=== PATIENT | female | born 1945 | race Caucasian/White ===

== ENCOUNTER 2025-01-11 02:01 | Inpatient (IN) | payer OTHER ==
[2025-01-11] VITALS (41 sets, daily range): BP systolic 91–149; BP diastolic 49–90; PULSE 70–103; RESP 18–62; TEMP 97.7–99.1; O2SAT 28–98
[~2025-01-11] VITALS: Ht 160 cm; Wt 49.5 kg
[~2025-01-11 02:01] MED LIST: AMLO2.5T4 PO; BENZ150C8 PO; BUDE10.7 IH; CHOL500050 PO; HYDR500C2 PO; LEVO75CA5 PO; LISI10TA24 PO; VENL50TA29 PO
[2025-01-11 02:13] LABS: ABG BASE EXCESS -5.1 mmol/L (-2.0-3.0); ABG HCO3 22.5 mmol/L (21.0-28.0); ABG OXYGEN SATURATION 95.8 % (94.0-98.0); ABG PCO2 53 mmHg (32-45); ABG PH 7.247 (7.350-7.450); CARBON MONOXIDE 4.4 % (0.5-1.5); PO2, ARTERIAL BG 92.8 mmHg (83.0-108.0); VENT MODE, BG NC (ROOM AIR)
--- NOTE | 2025-01-11 02:28 | NUR ---
PATIENT PLACED ON DARRELL HUGGER.
--- NOTE | 2025-01-11 02:29 | ERN ---
ED Note History of Present Illness Stated Complaint: RESPIRATORY ARREST Chief Complaint: Resp Arrest Time Seen by MD: 02:03 Dictation: Patient is a 80-year-old female with a past medical history of COPD, hypertension and recent pneumonia who was brought by EMS due to shortness breath. As per EMS reports patient was on agonal breathing when they arrived, patient received CPR, was bag and per EMS reports patient has improved and started breathing on her own. She was placed on non-rebreather mask and brought to the emergency department. On arrival patient was found to have a acidosis respiratory due to CO2 retention. PH was 7.2, CO2 was 53, patient was lethargic but able to respond simple question. Decision to place the patient on BiPAP during admission was discussed with the RT. Patient is saturating above 90% on 2 L O2 supplementation. We will defer intubation. Allergies: Coded Allergies: No Known Drug Allergies (Verified Allergy, Unknown, 03/13/21) Home Meds Reported Medications Budesonide/Glycopyr/Formoterol (Breztri Aerosphere Inhaler) 160 Mcg-9 Mcg-4.8 Mcg/Actuation Hfa.aer.ad, 2 PUFF IH BID for 30 Days, #10.7 GM 0 Refills 11/24/24 Hydroxyurea (Hydroxyurea) 500 Mg Capsule, 1 CAP PO DAILY for 30 Days, #30 CAP 0 Refills 11/24/24 Benzonatate (Benzonatate) 150 Mg Capsule, 1 CAP PO TID for cough for 7 Days, #21 CAP 0 Refills 11/24/24 Cholecalciferol (Vitamin D3) (Vitamin D3) 1,250 Mcg (88602 Unit) Capsule, 1 CAP PO QWEEK for 28 Days, #4 CAP 0 Refills 11/24/24 Venlafaxine HCl (Venlafaxine HCl) 50 Mg Tablet, 1 TAB PO BID for 30 Days, #60 TAB 0 Refills 11/24/24 Levothyroxine Sodium (Levothyroxine) 75 Mcg Capsule, 75 MCG PO ACBKFST, CAP 03/13/21 Lisinopril (Lisinopril) 10 Mg Tablet, 10 MG PO AM, TAB 03/13/21 Amlodipine Besylate (Amlodipine Besylate) 2.5 Mg Tablet, 2.5 MG PO AM, TAB 03/13/21 Past Medical History Past Medical History: Cancer, COPD, Hypertension Surgical History: Hysterectomy History: Not Applicable Review of System Dictation NEGATIVE EXCEPT PER HPI Constitutional: Negative for fever,chills, and weight loss Eyes: Negative for injury, pain,redness, and discharge ENT: Negative for injury,pain or swelling Cardiovascular: denies chest pain, palpitations, and edema Respiratory: Shortness breath Abdomen/GI: Negative for abdominal pain, nausea, vomiting, diarrhea, and constipation Back: Negative for injury and pain : Negative for injury, bleeding and discharge MS/Extremity: Negative for injury and deformity Skin: Negative for rash, and discoloration Neuro: N lethargic. Psych: Negative for suicide ideation, homicidal ideation, and hallucinations Initial Vital Sign VS Vital Signs Date Time Temp Pulse Resp B/P (MAP) Pulse Ox O2 Delivery O2 Flow Rate FiO2 01/11/25 02:08 95.0 76 20 124/73 99 Nasal Cannula* 2 28 Physical Exam Dictation General: Drowsy Head/Face: Normocephalic, atraumatic Eyes: PERRL, ENT: oral cavity clear, Neck: Trachea midline, supple, no nuchal rigidity Cardiovascular: RRR, normal S1/S2, No MRGs, no JVD Respiratory: Positive for wheezing. Abdomen: Soft Skin: Warm, dry, normal turgor, no rash MS/Extremity: Pulses equal, no cyanosis, Neuro: lethargic Psych: Normal behavior, mood, and affect normal Results (Laboratory/Radiology) Laboratory/Radiology Laboratory Tests Test 01/11/25 02:03 01/11/25 02:11 01/11/25 02:13 01/11/25 02:28 Urine Color Light-Yellow (YELLOW) Urine Appearance CLEAR (CLEAR) Urine pH 7.0 (5.0-8.0) Urine Specific [place] 1.008 (1.001-1.031) Urine Protein 50 mg/dL (NEGATIVE) H Urine Glucose (UA) 200 mg/dL (NEGATIVE) H Urine Ketones NEGATIVE mg/dL (NEGATIVE) Urine Occult Blood +- (TRACE) (NEGATIVE) H Urine Nitrate NEGATIVE (NEGATIVE) Urine Bilirubin NEGATIVE mg/dL (NEGATIVE) Urine Urobilinogen 0.2 mg/dL (0.2-1.0) Urine Leukocyte Esterase NEGATIVE Darling/uL Urine RBC 2-5 /HPF (0-1) H Urine WBC 6-10 /HPF (0-1) H Urine Bacteria None /HPF (None Seen) Urine Waxy Casts (Auto) 2-5 /LPF (None Seen) H Blood Gas Specimen Type Arterial Arterial Blood pH 7.247 (7.350-7.450) Arterial Blood Partial Pressure CO2 53 mmHg (32-45) H Arterial Blood Partial Pressure O2 92.8 mmHg (83.0-108.0) Arterial Blood HCO3 22.5 mmol/L (21.0-28.0) Arterial Blood Oxygen Saturation 95.8 % (94.0-98.0) Arterial Blood Base Excess -5.1 mmol/L (-2.0-3.0) L Hemoglobin (Blood Gas) 12.2 g/dL (12.0-16.0) Sodium (Blood Gas) 139 MMOL/L (136-145) Bedside Potassium (Blood Gas) 2.9 MMOL/L (3.4-4.5) *L Bedside Chloride (Blood Gas) 102 MMOL/L (98-107) Bedside Glucose (Blood Gas) 209 MG/DL (65-95) H Bedside Ionized Calcium (Blood Gas) 1.17 MMOL/L (1.15-1.33) Bedside Lactic Acid (Blood Gas) 4.90 MMOL/L (0.36-0.75) *H Blood Gas Temperature 37.0 CELSIUS (35.5-37.0) Blood Gas Flow-by 2.00 L/min (0.00-15.00) Blood Gas Vent Mode NC (ROOM AIR) FiO2 28.0 % Blood Gas Specimen Comment RB DR.VAZ KAY White Blood Count 7.3 K/uL (4.8-10.8) Red Blood Count 3.20 MIL/uL (4.00-5.50) L Hemoglobin 11.7 g/dL (12.0-16.0) L Hematocrit 36.2 % (36-48) Mean Corpuscular Volume 113.1 fL (79-99) H Mean Corpuscular Hemoglobin 36.6 pg (27.0-33.0) H Mean Corpuscular Hemoglobin Concent 32.3 g/dL (32.0-36.0) Red Cell Distribution Width 16.4 % (11.0-15.5) H Platelet Count 305 K/uL (130-400) Mean Platelet Volume 10.9 fL (7.5-10.5) H Immature Granulocyte % (Auto) 1.2 % (0-1) H Neutrophils (%) (Auto) 59.6 % (40.0-77.0) Lymphocytes (%) (Auto) 30.2 % (21.0-51.0) Monocytes (%) (Auto) 6.9 % (3.0-13.0) Eosinophils (%) (Auto) 1.4 % (0.0-8.0) Basophils (%) (Auto) 0.7 % (0.0-5.0) Neutrophils # (Auto) 4.4 K/uL (1.8-7.7) Lymphocytes # (Auto) 2.2 K/uL (1.0-4.8) Monocytes # (Auto) 0.5 K/uL (0.1-1.0) Eosinophils # (Auto) 0.10 K/uL (0.00-0.70) Basophils # (Auto) 0.05 K/uL (0.00-0.20) Absolute Immature Granulocyte (auto 0.09 K/uL (0-1) Nucleated Red Blood Cells 0.0 % (0.0-0.19) Red Blood Cell Morphology See comments Sodium Level 141 mmol/L (136-145) Potassium Level 3.1 mmol/L (3.5-5.1) L Chloride Level 101 mmol/L (101-111) Carbon Dioxide Level 33 mmol/L (21-32) H Blood Urea Nitrogen 13 mg/dL (7-18) Creatinine 0.9 mg/dL (0.5-1.0) Glomerular Filtration Rate Calc 65 mL/min (>90) Random Glucose 221 mg/dL (70-105) H Lactic Acid Level 6.0 mmol/L (0.8-2.5) H Total Calcium 8.8 mg/dL (8.5-10.1) Magnesium Level 1.60 mg/dL (1.80-2.40) L Ammonia < 10 umol/L (11-32) L Total Creatine Kinase 104 U/L (21-232) # Troponin I High Sensitivity 47 ng/L (4-50) B-Type Natriuretic Peptide 925 pg/mL (0-100) H Influenza Type A Antigen Negative For Type A Influenza Type B Antigen Negative For Type B SARS-CoV-2, RNA, NAAT NEGATIVE SARS CoV-2 Group A Streptococcus Rapid negative (NEGATIVE) ED Course ED Course Orders Procedure Category Date Status Time Ammonia LAB 01/11/25 Complete 02:04 Arterial Blood Gas RT 01/11/25 Transmitted 02:05 0.9%Nacl 1000ml (Ns PHA 01/11/25 In Process 1000ml) 02:30 Iv Insertion CPOE 01/11/25 Transmitted 02:05 Pulse Ox(Continuous) RT 01/11/25 Transmitted 02:05 Vital Signs Per CPOE 01/11/25 Transmitted Routine 02:05 12 Lead Ekg Tracing- EKG 01/11/25 Logged Technical 02:05 Cbc With Differential LAB 01/11/25 Complete 02:05 Blood Cult RISSA 01/11/25 In Process 02:05 Urinalysis Profile LAB 01/11/25 Complete 02:05 Culture Urine RISSA 01/11/25 In Process 02:05 Troponin I High LAB 01/11/25 Complete Sensitivity 02:05 Lactic Acid LAB 01/11/25 Complete 02:05 B-Type Natriuretic LAB 01/11/25 Complete Peptide 02:05 Influenza Type A & B, LAB 01/11/25 Complete Rapid 02:05 Covid Rna Naat LAB 01/11/25 Complete 02:05 Chest 1vw RAD 01/11/25 Taken 02:05 Arterial Blood Gas LAB 01/11/25 Complete Arterial + 02:11 Ipratropium/Albuterol PHA 01/11/25 Complete Neb (Duoneb) 02:30 Potassium Chloride PHA 01/11/25 In Process 10meq/100ml (Potassiu 02:30 Ceftriaxone 2gm Vial PHA 01/11/25 Complete (Rocephin 2gm Inj) 02:30 Azithromycin 500mg+Ns PHA 01/11/25 In Process 250ml (Azithromyci 02:30 Rapid (Group A Strep) LAB 01/11/25 Complete 02:24 Basic Metabolic Panel LAB 01/11/25 Complete 02:04 Creatine Kinase, Total LAB 01/11/25 Complete 02:04 Magnesium LAB 01/11/25 Complete 02:04 Lorazepam 2 Mg PHA 01/11/25 Complete (Ativan) 03:00 Lorazepam 2 Mg PHA 01/11/25 Complete (Ativan) 02:36 Bipap Settings RT 01/11/25 Transmitted 02:39 Potassium Chloride PHA 01/11/25 In Process 20meq/100ml (Potassiu 03:00 Lactated Ringers PHA 01/11/25 In Process 1000ml (Lactated 03:00 Magnesium 2gm Premix PHA 01/11/25 In Process 50ml (Magnesium 2gm 03:30 Current Medications Medications (Trade) Dose Ordered Sig/Moises Route PRN Reason Start Time Stop Time Status Last Admin Dose Admin Albuterol (DUOneb) 1 udvial ONCE ONCE IH 01/11/25 02:30 01/11/25 02:31 DC 01/11/25 02:42 Azithromycin 250 ml @ 250 mls/hr Q24H IVPB 01/11/25 02:30 01/21/25 02:29 01/11/25 03:05 Ceftriaxone Sodium (Rocephin 2gm Inj) 2 gm ONCE ONCE IVPB 01/11/25 02:30 01/11/25 02:31 DC 01/11/25 02:34 Lactated Ringer's 1,000 ml @ 0 mls/hr Q0M IV 01/11/25 03:00 02/10/25 02:59 01/11/25 02:57 Lorazepam (AtiVAN) 1 mg ONCE ONCE IVP 01/11/25 03:00 01/11/25 03:01 DC 01/11/25 03:01 Lorazepam (AtiVAN) 2 mg STK-MED ONCE .ROUTE 01/11/25 02:36 01/11/25 02:36 DC Magnesium Sulfate 50 ml @ 0 mls/hr PROTOCOL IV 01/11/25 03:30 02/10/25 03:29 Potassium Chloride 100 ml @ 50 mls/hr ONCE ONCE IV 01/11/25 03:00 01/11/25 04:59 Potassium Chloride 100 ml @ 100 mls/hr ONCE ONCE IV 01/11/25 02:30 01/11/25 03:29 01/11/25 02:35 Sodium Chloride 1,000 ml @ 150 mls/hr Q6H40M IV 01/11/25 02:30 02/10/25 02:29 01/11/25 02:34 Vital Signs Date Time Temp Pulse Resp B/P (MAP) Pulse Ox O2 Delivery O2 Flow Rate FiO2 01/11/25 03:13 59 18 96/54 99 Bi-PAP+ 2 28 01/11/25 03:02 69 18 90/50 99 Bi-PAP+ 2 28 01/11/25 02:47 85 18 82/54 96 Bi-PAP+ 15 28 01/11/25 02:40 70 34 28 01/11/25 02:33 70 30 01/11/25 02:22 70 18 124/74 100 Nasal Cannula* 2 28 01/11/25 02:08 95.0 76 20 124/73 99 Nasal Cannula* 2 28 Medical Decision Making [facility] Patient is a 80-year-old female with a past medical history of COPD, hypertension and recent pneumonia who was brought by EMS due to shortness breath. As per EMS reports patient was on agonal breathing when they arrived, patient received CPR, was bag and per EMS reports patient has improved and started breathing on her own. She was placed on non-rebreather mask and brought to the emergency department. On arrival patient was found to have a acidosis respiratory due to CO2 retention. PH was 7.2, CO2 was 53, patient was lethargic but able to respond simple question. Decision to place the patient on BiPAP during admission was discussed with the RT. Patient is saturating above 90% on 2 L O2 supplementation. We will defer intubation. -acute respiratory failure with hypercapnia -respiratory acidosis -COPD exacerbation -pneumonia -electrolyte imbalance -dehydration Laboratory results: Potassium 3.1, magnesium 1.6, BNP 925, lactic acid 6 Patient received 2 L fluids, IV antibiotics was given empirically ce ftriaxone/azithromycin. Patient on BiPAP, 1 mg Ativan given. Was discussed with [facility]ist from [facility] who was agreeable to admit the patient for further medical management. Patient will be admitted to the PCU status Electrolytes correction was started including potassium and magnesium. DX & DISP Disposition: Inpatient Departure Impression: Primary Impression: Acute respiratory failure with hypercapnia Additional Impressions: COPD exacerbation, Hypokalemia, Hypomagnesemia, Lactic acid acidosis Critical Time: 60 minutes Condition: Critical Referrals: LIANA MEZA MD (PCP) MARCY ALONSO MD Jan 11, 2025 02:29
[2025-01-11] MEDS: 0.9%NACL 1000ML 1,000 ML IV SCH (02:34)
[2025-01-11] MEDS: CEFTRIAXONE 2GM VIAL IVPB ONE (02:34)
[2025-01-11] MEDS: PoTASSium chloRIDE 10MEQ/100ML 100 ML IV ONE (02:35)
[2025-01-11 02:38] LABS: BASOPHILS # (AUTO) 0.05 K/uL (0.00-0.20); BASOPHILS % (AUTO) 0.7 % (0.0-5.0); EOSINOPHILS % (AUTO) 1.4 % (0.0-8.0); HEMATOCRIT 36.2 % (36-48); IMMATURE GRANULOCYTE ABSOLUTE 0.09 K/uL (0-1); LYMPHOCYTES # (AUTO) 2.2 K/uL (1.0-4.8); LYMPHOCYTES % (AUTO) 30.2 % (21.0-51.0); MEAN CORPUSCULAR HEMOGLOBIN 36.6 pg (27.0-33.0); MEAN CORPUSCULAR HGB CONC 32.3 g/dL (32.0-36.0); MEAN CORPUSCULAR VOLUME 113.1 fL (79-99); MONOCYTES # (AUTO) 0.5 K/uL (0.1-1.0); MONOCYTES % (AUTO) 6.9 % (3.0-13.0); NEUTROPHILS # (AUTO) 4.4 K/uL (1.8-7.7); NEUTROPHILS % (AUTO) 59.6 % (40.0-77.0); PLATELET COUNT (AUTO) 305 K/uL (130-400); RED CELL DISTRIBUTION WIDTH 16.4 % (11.0-15.5); WHITE BLOOD COUNT (AUTO) 7.3 K/uL (4.8-10.8)
[2025-01-11 02:41] LABS: APPEARANCE,URINE CLEAR (CLEAR); BILIRUBIN,URINE NEGATIVE (NEGATIVE); GLUCOSE, URINE (UA) 200 mg/dL (NEGATIVE); KETONES,URINE NEGATIVE (NEGATIVE); LEUKOCYTE ESTERASE ,URINE NEGATIVE Leu/uL (NEGATIVE); NITRATE,URINE NEGATIVE (NEGATIVE); PROTEIN,URINE 50 mg/dL (NEGATIVE); UROBILINOGEN,URINE 0.2 mg/dL (0.2-1.0)
[2025-01-11] MEDS: IpraTROPium/alBUTERol SULFATE 3 ML SOLUTION IH ONE (02:42)
[2025-01-11 02:43] LABS: COLOR,URINE Light-Yellow (YELLOW)
[2025-01-11 02:44] LABS: ADD UA MICROSCOPIC YES
[2025-01-11 02:45] LABS: MUCUS,URINE RARE LPF (None Seen)
[2025-01-11 02:47] LABS: CARBON DIOXIDE 33 mmol/L (21-32); CHLORIDE 101 mmol/L (101-111); CREATININE 0.9 mg/dL (0.5-1.0); GLOMERULAR FILTR. RATE CALC 65 mL/min (>90); GLUCOSE,RANDOM 221 mg/dL (70-105); POTASSIUM 3.1 mmol/L (3.5-5.1); SODIUM SERUM 141 mmol/L (136-145); UREA NITROGEN, BLOOD 13 mg/dL (7-18)
[2025-01-11 02:47] LABS: SARS-CoV-2, RNA, NAAT NEGATIVE SARS CoV-2 (NEGATIVE)
[2025-01-11 02:51] LABS: CREATINE KINASE, TOTAL 104 U/L (21-232)
[2025-01-11 02:54] LABS: INFLUENZA TYPE A Negative For Type A (NEGATIVE); INFLUENZA TYPE B Negative For Type B (NEGATIVE)
[2025-01-11] MEDS: LACTATED RINGERS 1000ML 1,000 ML IV SCH ×3 (02:57→16:21)
[2025-01-11] MEDS: PoTASSium chloRIDE 20MEQ/100ML 100 ML IV ONE (03:00)
[2025-01-11] MEDS: LORazepam 2 MG/ML 1 ML VIAL ONE (03:01)
[2025-01-11] MEDS: LORazepam 2 MG/ML 1 ML VIAL IVP ONE (03:01)
[2025-01-11] MEDS: AZITHROMYCIN 500MG+NS 250ML 250 ML IVPB SCH (03:05)
[2025-01-11 03:06] LABS: AMMONIA < 10 umol/L (11-32)
[2025-01-11 03:15] LABS: B-TYPE NATRIURETIC PEPTIDE 925 pg/mL (0-100)
[2025-01-11] MEDS: MAGNESIUM 2GM PREMIX 50ML 50 ML IV SCH (03:44)
[2025-01-11] MEDS ORDERED: LAbetaLOL 20MG SYG IV PRN (04:30)
[2025-01-11] MEDS ORDERED: hydrALAZine 20MG/ML VIAL IV PRN (04:30)
[2025-01-11] MEDS ORDERED: HYDROcodone/APAP 5/325 1 TAB TABLET PO PRN (04:30)
[2025-01-11] MEDS ORDERED: acetaMINOPHEN 650 MG SUPPOSITORY RC PRN (04:30)
[2025-01-11] MEDS ORDERED: ondanSETRON 4MG INJ IVP PRN (04:30)
--- NOTE | 2025-01-11 04:57 | NUR ---
PATIENT HAD LARGE SOFT BM ON BEDSIDE COMODE, BROWN IN COLOR.
--- NOTE | 2025-01-11 04:59 | NUR ---
DARRELL BURKETT REMOVED.
[2025-01-11] MEDS: BUDESONIDE 0.5 MG/2 ML INH IH SCH (06:35)
[2025-01-11] MEDS: IpraTROPium/alBUTERol SULFATE 3 ML SOLUTION IH SCH (06:35)
--- NOTE | 2025-01-11 06:55 | EKG ---
[facility] Test Date: 2025-01-11 Test Time: 01:57:11 Pat Name: KRISTINA MA Department: [facility] Room: 219 1 Gender: F Before School: 1088 : 1945 Requested By: MARCY EMERY Order Number: [id number] Reading MD: Aarti Trevino Measurements Intervals [place] Rate: 80 P: 82 DE: 161 QRS: 68 QRSD: 101 T: 201 QT: 411 QTc: 473 Interpretive Statements Sinus rhythm Atrial premature complex Probable LVH with secondary repol abnrm ST elevation, consider inferior injury Compared to ECG 11/23/2024 18:54:01 Atrial premature complex(es) now present ST (T wave) deviation now present Myocardial infarct finding now present Ventricular premature complex(es) no longer present Atrial abnormality no longer present T-wave abnormality no longer present Electronically Signed On 01-11-2025 14:35:42 MANAGER OF DRILLING by Aarti Trevino Please click the below link to view image of tracing.
[2025-01-11] MEDS: INSULIN humuLIN R 100 UNIT/ML 3ML SQ SCH (07:30)
--- NOTE | 2025-01-11 08:06 | NUR ---
0600 admitted to 219 from ER. No family with patient. On Bipap. Oriented to room, call light,etc. Awakens easiliy but falls back asleep readily. Call light and needed items placed readily at hand.
[2025-01-11 08:19] LABS: ABG BASE EXCESS 0.8 mmol/L (-2.0-3.0); ABG HCO3 26.1 mmol/L (21.0-28.0); ABG OXYGEN SATURATION 93.1 % (94.0-98.0); ABG PCO2 44 mmHg (32-45); ABG PH 7.389 (7.350-7.450); PO2, ARTERIAL BG 67.2 mmHg (83.0-108.0); VENT MODE, BG BIPAP 10 5 (ROOM AIR)
[2025-01-11 08:21] LABS: CREATININE 0.7 mg/dL (0.5-1.0); POTASSIUM 3.1 mmol/L (3.5-5.1)
[2025-01-11] MEDS: polyETHYLene GLYCol 3350 17 GM POWD.PACK PO SCH (09:00)
[2025-01-11] MEDS: PANTOPrazole 40 MG TAB DR PO SCH (09:17)
[2025-01-11] MEDS: ASCORBIC ACID 500 MG TAB PO SCH (09:17)
[2025-01-11] MEDS: Solu-medROL 40MG VIAL IVP SCH (09:17)
[2025-01-11] MEDS: ENOXAPARIN SODIUM 40 MG/0.4 ML SYRINGE SQ SCH (09:19)
--- NOTE | 2025-01-11 10:01 | HP ---
[facility] HISTORY & PHYSICAL Date Patient Seen: Jan 11, 2025 Time of Visit: 09:46 Supervising Physician: Dr. Aguila Primary Care Physician: LIANA Hernandez MD Outpatient Specialists: [ ] Inpatient Consults: [ ] PROBLEM LIST: Acute hypoxemic hypercarbic respiratory failure POA. Respiratory acidosis. COPD exacerbation. Current smoker, consumes 6 cigarettes sticks per day. Hypokalemia. Hypomagnesemia Dehydration. Lactic acidosis. Hypothyroidism. HPI: This is a 80-year-old female patient who has past medical history significant for hypertension, hypothyroidism, depression, COPD and is a current smoker, reports 6-cigarette sticks per day. Patient does not have good recollection of the pre-hospital events. Based on the chart documentation, the patient went into respiratory arrest, EMS was called and arrived to the scene. ER MD documentation states that the patient was seen in agonal breathing, CPR was initiated, the patient's status significantly improved and was able to sustain breathing on her own. The patient was placed on a non-rebreather mask and was brought into the emergency department for further evaluation and management of her condition. Upon initial evaluation in the emergency department, initial vital signs obtained showed hypotension, was initially tachypneic and heart rate was within the normal range. Initial ABG on admission showed a pH of 7.247, pCO2 53, PO2 92.8, HC03 of 22.5, SpO2 95.8 and base excess of -5.1. Laboratory data obtained was notable for a slightly low potassium of 3.1, magnesium 1.6, initial lactic acidosis of 6.0 which later corrected to 1.5. Negative troponin 47. Urinalysis was negative for infection. Respiratory viral panel was also negative. Chest x-ray showed no acute airspace disease. The patient was subsequently started on a BiPAP therapy, with noticeable improvement of her respiratory status and was later admitted for further inpatient evaluation and management of her condition. At the time of my visit, the patient was in her assigned room and the staff nurse reports no acute events overnight. The patient remain on a BiPAP therapy, currently 10/5, respiratory rate of 18, FiO2 28%. No other complaint. PAST MEDICAL HX: see above PAST SURGICAL HX: noncontributory SOCIAL HISTORY: Reports 6-cigarette sticks per day. No ETOH, or illicit drug use Coded Allergies: No Known Drug Allergies (Verified Allergy, Unknown, 5/6/21) REVIEW OF SYSTEMS: 12 point ROS reviewed with patient. Pertinent positives mentioned above. Otherwise negative. PHYSICAL EXAM: GENERAL: Alert, weak, awake oriented x 3 HEENT: EOMI, Sclera non icteric, moist mucosa NECK: Supple, no JVD, trachea midline LUNGS: Diminished breath sounds bilaterally. No wheezes HEART: Regular rate and rhythm. Normal S1 and S2, without murmurs ABD: Abdomen soft, nontender. Bowel sounds present EXT: No clubbing cyanosis or edema NEURO: Alert and oriented to person, follows commands Vital Signs (last 8hr) Date Time Temp Pulse Resp B/P (MAP) Pulse Ox O2 Delivery O2 Flow Rate FiO2 01/11/25 09:10 40 01/11/25 07:00 94 21 101/69 100 BIPAP 01/11/25 06:45 74 21 128/78 100 BIPAP 28 01/11/25 06:36 90 21 01/11/25 06:35 90 21 01/11/25 06:30 74 23 121/84 100 BIPAP 28 01/11/25 06:30 98 Bi-PAP+ 01/11/25 06:15 76 22 126/85 96 BIPAP 28 01/11/25 06:00 97.7 85 21 137/90 97 BIPAP 01/11/25 05:31 70 18 114/68 98 Bi-PAP+ 2 01/11/25 05:02 01/11/25 04:53 80 18 103/68 98 Bi-PAP+ 2 01/11/25 04:37 97.9 74 18 108/64 98 Bi-PAP+ 2 01/11/25 03:53 74 18 93/59 99 Bi-PAP+ 2 28 01/11/25 03:45 76 18 92/47 97 Bi-PAP+ 2 28 01/11/25 03:13 59 18 96/54 99 Bi-PAP+ 2 28 01/11/25 03:02 69 18 90/50 99 Bi-PAP+ 2 28 01/11/25 02:47 85 18 82/54 96 Bi-PAP+ 15 01/11/25 02:40 70 34 28 01/11/25 02:33 70 30 01/11/25 02:22 70 18 124/74 100 Nasal Cannula* 2 01/11/25 02:08 95.0 76 20 124/73 99 Nasal Cannula* 2 28 LABS: Hematology Labs: Test 01/11/25 02:13 Range/Units White Blood Count 7.3 4.8-10.8 K/uL Red Blood Count 3.20 L 4.00-5.50 MIL/uL Hemoglobin 11.7 L 12.0-16.0 g/dL Hematocrit 36.2 36-48 % Mean Corpuscular Volume 113.1 H 79-99 fL Mean Corpuscular Hemoglobin 36.6 H 27.0-33.0 pg Mean Corpuscular Hemoglobin Concent 32.3 32.0-36.0 g/dL Red Cell Distribution Width 16.4 H 11.0-15.5 % Platelet Count 305 130-400 K/uL Mean Platelet Volume 10.9 H 7.5-10.5 fL Immature Granulocyte % (Auto) 1.2 H 0-1 % Neutrophils (%) (Auto) 59.6 40.0-77.0 % Lymphocytes (%) (Auto) 30.2 21.0-51.0 % Monocytes (%) (Auto) 6.9 3.0-13.0 % Eosinophils (%) (Auto) 1.4 0.0-8.0 % Basophils (%) (Auto) 0.7 0.0-5.0 % Neutrophils # (Auto) 4.4 1.8-7.7 K/uL Lymphocytes # (Auto) 2.2 1.0-4.8 K/uL Monocytes # (Auto) 0.5 0.1-1.0 K/uL Eosinophils # (Auto) 0.10 0.00-0.70 K/uL Basophils # (Auto) 0.05 0.00-0.20 K/uL Absolute Immature Granulocyte (auto 0.09 0-1 K/uL Nucleated Red Blood Cells 0.0 0.0-0.19 % Red Blood Cell Morphology See comments Chemistry Labs: Test 01/11/25 07:55 01/11/25 06:03 01/11/25 02:13 Range/Units Whole Blood Glucose 118 H 70-110 MG/DL Bedside Glucose Comment Notified Nurse Sodium Level 144 136-145 mmol/L Potassium Level 3.1 L 3.5-5.1 mmol/L Chloride Level 105 101-111 mmol/L Carbon Dioxide Level 31 21-32 mmol/L Blood Urea Nitrogen 15 7-18 mg/dL Creatinine 0.7 0.5-1.0 mg/dL Glomerular Filtration Rate Calc 88 >90 mL/min Random Glucose 107 #H 70-105 mg/dL Lactic Acid Level 1.5 0.8-2.5 mmol/L Total Calcium 8.6 8.5-10.1 mg/dL Magnesium Level 1.60 L 1.80-2.40 mg/dL Ammonia < 10 L 11-32 umol/L Total Creatine Kinase 104 # 21-232 U/L Troponin I High Sensitivity 47 4-50 ng/L B-Type Natriuretic Peptide 925 H 0-100 pg/mL DIAGNOSTICS / RADIOLOGY RESULTS: [ ] PLAN The patient was admitted to MD hospitalist group. I am going to review and reconcile medication list once this becomes available. She will remain on BiPAP therapy for now. We will later attempt to transition back to a nasal cannula and monitor oxygen saturation. The patient was started on steroid therapy with Solu-Medrol 40 b.i.d. IV, we will keep that for now as well as the b ronchodilator therapy. She was placed on empiric antibiotic therapy with azithromycin and Rocephin, will continue with Zithromax. I am going to discontinue the IV fluids, lactic acidosis corrected. Electrolyte imbalance will be replaced per the protocol. I am going to request repeat cardiac enzymes x2 as well as potassium and magnesium level. We will continue monitoring the re spiratory status and adjust as necessary. We will continue provide general supportive care, GI and DVT prophylaxis. Further orders per attending MD and hospital course. NEURO: Minimize central acting medications as possible. Maintain fall precautions, adequate lighting during the day PULMONARY: Supplemental 02 as needed. Maintain aspiration precautions at all times CARDIOVASCULAR: Follow hemodynamics. Vital signs per facility protocol GI & NUTRITION: Continue with nutritional support. Continue stool softeners and laxatives as needed. KIDNEYS & ELECTROLYTES: Strict monitoring of intake, output and overall fluid balance. Avoid nephrotoxic medications to the extent possible. Medications to be dosed according to renal function. Monitor electrolytes and replace as needed ENDOCRINE: Maintain blood glucose between 100-180 at all times. Hypoglycemia protocol in place INFECTIOUS DISEASE: Trend temperature, WBC and procalcitonin level Follow cultures, deescalate antibiotics as soon as possible. Panculture if new onset fever ONCOLOGY/HEMATOLOGY/COAGULATION: Monitor for s/s of bleeding Monitor hemoglobin, coagulation studies as needed SKIN: Pressure ulcer prevention per facility protocol Specialty mattress ORTHO/REHAB: Continue PT/OT Prophylaxis: Continue GI and DVT prophylaxis Code Status: Full Resuscitation Disposition: TBD Other: Total patient care time exceeds 45 minutes excluding all procedures. HANNAH BARRON NP Jan 11, 2025 10:01
[2025-01-11] MEDS ORDERED: PoTASSium chloRIDE 20MEQ ER 20 MEQ ERTAB PO PRN (11:30)
[2025-01-11] MEDS: PoTASSium chl 10% ELIXIR 20MEQ 20 MEQ/15 ML UDCUP PO PRN (11:43)
--- NOTE | 2025-01-11 16:21 | NUR ---
DCP Pt awake, alert, oriented x3 lives with Helga Rod [phone]. PCP is Christiano Hollingsworth. Pt states he just retired, independent, and does not use any medical equipment. Anticipates discharge is for home. Addendum: 01/11/25 at 1627 by KUN CROWDER RN CM Amended: Links added. Addendum: 01/12/25 at 1821 by KUN CROWDER RN CM PREVIOUS ENTRY ENTERED IN ERROR Pt lives with daughter Nena Batista [phone] in house. PCP is Dr Gottlieb. Pt does not use or have cane, walker, wheelchair and independent prior to admission. Praveen Munoz at bedside. Anticipates discharge plan is for home with daughter Nena Batista.
--- NOTE | 2025-01-11 16:26 | HMCIMG ---
CHEST 1VW HISTORY: Respiratory arrest COMPARISON: 12/02/2024 FINDINGS: A frontal projection of the chest was obtained. There are bilateral pulmonary infiltrates suggestive of pulmonary vascular congestion with possible superimposed pneumonitis. The heart is borderline enlarged. Degenerative changes are seen. Aortic calcifications are seen. IMPRESSION: 1. Bilateral pulmonary infiltrates are seen suggestive of pulmonary vascular congestion with possible superimposed pneumonitis.
[2025-01-11] MEDS ORDERED: PHARMACY COMMUNICATION 1 EACH EACH MISC SCH (16:30)
[2025-01-12] VITALS (18 sets, daily range): BP systolic 128–155; BP diastolic 65–93; PULSE 67–150; RESP 17–34; TEMP 98–98.7; O2SAT 89–100
[2025-01-12 04:10] LABS: BASOPHILS # (AUTO) 0.01 K/uL (0.00-0.20); BASOPHILS % (AUTO) 0.1 % (0.0-5.0); HEMATOCRIT 34.2 % (36-48); IMMATURE GRANULOCYTE ABSOLUTE 0.12 K/uL (0-1); LYMPHOCYTES # (AUTO) 0.5 K/uL (1.0-4.8); LYMPHOCYTES % (AUTO) 3.1 % (21.0-51.0); MEAN CORPUSCULAR HEMOGLOBIN 36.5 pg (27.0-33.0); MEAN CORPUSCULAR HGB CONC 33.6 g/dL (32.0-36.0); MEAN CORPUSCULAR VOLUME 108.6 fL (79-99); MONOCYTES # (AUTO) 0.3 K/uL (0.1-1.0); MONOCYTES % (AUTO) 1.6 % (3.0-13.0); NEUTROPHILS # (AUTO) 14.7 K/uL (1.8-7.7); NEUTROPHILS % (AUTO) 94.4 % (40.0-77.0); PLATELET COUNT (AUTO) 300 K/uL (130-400); RED BLOOD CELL COUNT(AUTO) 3.15 MIL/uL (4.00-5.50); WHITE BLOOD COUNT (AUTO) 15.6 K/uL (4.8-10.8)
[2025-01-12 04:34] LABS: CREATININE 0.8 mg/dL (0.5-1.0); MAGNESIUM 1.6 mg/dL (1.80-2.40); PHOSPHORUS 2.9 mg/dL (2.5-4.9); POTASSIUM 3.5 mmol/L (3.5-5.1)
--- NOTE | 2025-01-12 19:19 | PN ---
[facility] PROGRESS NOTE Date Patient Seen: Jan 12, 2025 Time of Visit: 19:18 Supervising Physician: Dr. Aguila Primary Care Physician: LIANA Hernandez MD Outpatient Specialists: [ ] Inpatient Consults: [ ] PROBLEM LIST: Acute hypoxemic hypercarbic respiratory failure POA. Respiratory acidosis. COPD exacerbation. Current smoker, consumes 6 cigarettes sticks per day. Hypokalemia. Hypomagnesemia Dehydration. Lactic acidosis. Hypothyroidism. INTERVAL HISTORY: 01/12/2025: At the time of my evaluation, the patient was sitting up bed and enjoying her meal. The staff nurse reports no acute events overnight. The patient is currently on a nasal cannula and with optimal oxygenation. On the monitor she is hemodynamically stable. Laboratory data today showed a interval increase of WBC to 15.6, H&H 11.5/34.2 and a platelet count of 300. Chemistry panel was notable for a magnesium of 1.60. Microbiology data showed no growth in blood or urine. Imaging of the chest showed no acute airspace disease. No other complaint. REVIEW OF SYSTEMS: 12 point ROS reviewed with patient. Pertinent positives mentioned above. Otherwise negative. PHYSICAL EXAM: GENERAL: Alert, weak, awake oriented x 3 HEENT: EOMI, Sclera non icteric, moist mucosa NECK: Supple, no JVD, trachea midline LUNGS: Diminished breath sounds bilaterally. No wheezes HEART: Regular rate and rhythm. Normal S1 and S2, without murmurs ABD: Abdomen soft, nontender. Bowel sounds present EXT: No clubbing cyanosis or edema NEURO: Alert and oriented to person, follows commands Vital Signs (last 8hr) Date Time Temp Pulse Resp B/P (MAP) Pulse Ox O2 Delivery O2 Flow Rate FiO2 01/12/25 16:27 98.2 96 17 139/73 93 Room Air 01/12/25 12:00 98.8 67 20 132/69 97 Nasal Cannula 3.0 01/12/25 11:37 88 21 LABS: Hematology Labs: Test 01/12/25 01:49 01/11/25 02:13 Range/Units White Blood Count 15.6 #H 4.8-10.8 K/uL Red Blood Count 3.15 L 4.00-5.50 MIL/uL Hemoglobin 11.5 L 12.0-16.0 g/dL Hematocrit 34.2 L 36-48 % Mean Corpuscular Volume 108.6 H 79-99 fL Mean Corpuscular Hemoglobin 36.5 H 27.0-33.0 pg Mean Corpuscular Hemoglobin Concent 33.6 32.0-36.0 g/dL Red Cell Distribution Width 17.0 H 11.0-15.5 % Platelet Count 300 130-400 K/uL Mean Platelet Volume 11.0 H 7.5-10.5 fL Immature Granulocyte % (Auto) 0.8 0-1 % Neutrophils (%) (Auto) 94.4 H 40.0-77.0 % Lymphocytes (%) (Auto) 3.1 L 21.0-51.0 % Monocytes (%) (Auto) 1.6 L 3.0-13.0 % Eosinophils (%) (Auto) 0.0 0.0-8.0 % Basophils (%) (Auto) 0.1 0.0-5.0 % Neutrophils # (Auto) 14.7 H 1.8-7.7 K/uL Lymphocytes # (Auto) 0.5 L 1.0-4.8 K/uL Monocytes # (Auto) 0.3 0.1-1.0 K/uL Eosinophils # (Auto) 0.00 0.00-0.70 K/uL Basophils # (Auto) 0.01 0.00-0.20 K/uL Absolute Immature Granulocyte (auto 0.12 0-1 K/uL Nucleated Red Blood Cells 0.0 0.0-0.19 % White Cell Morphology Comment See comments Red Blood Cell Morphology See comments Chemistry Labs: Test 01/12/25 16:19 01/12/25 01:49 01/11/25 15:39 01/11/25 07:55 Range/Units Whole Blood Glucose 152 H 70-110 MG/DL Sodium Level 141 136-145 mmol/L Potassium Level 3.5 3.5-5.1 mmol/L Chloride Level 105 101-111 mmol/L Carbon Dioxide Level 29 21-32 mmol/L Blood Urea Nitrogen 9 7-18 mg/dL Creatinine 0.8 0.5-1.0 mg/dL Glomerular Filtration Rate Calc 75 >90 mL/min Random Glucose 155 H 70-105 mg/dL Total Calcium 8.5 8.5-10.1 mg/dL Phosphorus Level 2.9 2.5-4.9 mg/dL Magnesium Level 1.60 L 1.80-2.40 mg/dL Procalcitonin 0.09 0.05-0.5 ng/mL Troponin I High Sensitivity 30 4-50 ng/L Bedside Glucose Comment Notified Nurse Test 01/11/25 06:03 01/11/25 02:13 Range/Units Lactic Acid Level 1.5 0.8-2.5 mmol/L Ammonia < 10 L 11-32 umol/L Total Creatine Kinase 104 # 21-232 U/L B-Type Natriuretic Peptide 925 H 0-100 pg/mL DIAGNOSTICS / RADIOLOGY RESULTS: [ ] PLAN The patient was admitted to [facility] hospitalist group. I am going to review and reconcile medication list once this becomes available. She will remain on BiPAP therapy for now. We will later attempt to transition back to a nasal cannula and monitor oxygen saturation. The patient was started on steroid therapy with Solu-Medrol 40 b.i.d. IV, we will keep that for now as well as the bronchodilator therapy. She was placed on empiric antibiotic therapy with azithromycin and Rocephin, will continue with Zithromax. I am going to discontinue the IV fluids, lactic acidosis corrected. Electrolyte imbalance will be replaced per the protocol. I am going to request repeat cardiac enzymes x2 as well as potassium and magnesium level. We will continue monitoring the respiratory status and adjust as necessary. We will continue provide general supportive care, GI and DVT prophylaxis. Further orders per attending MD and hospital course. 01/12/2025: For now, we are going to continue current management for the patient. We will add doxycycline to the antibiotic regimen considering the increase of WBCs today, we will also recommend chest physiotherapy and bronchodilator therapy. I am going to request PT to evaluate and treat. We will monitor the patient's progress and management. We will continue to provide general supportive care, GI and DVT prophylaxis. Further orders per attending MD and hospital course. NEURO: Minimize central acting medications as possible. Maintain fall precautions, adequate lighting during the day PULMONARY: Supplemental 02 as needed. Maintain aspiration precautions at all times CARDIOVASCULAR: Follow hemodynamics. Vital signs per facility protocol GI & NUTRITION: Continue with nutritional support. Continue stool softeners and laxatives as needed. KIDNEYS & ELECTROLYTES: Strict monitoring of intake, output and overall fluid balance. Avoid nephrotoxic medications to the extent possible. Medications to be dosed according to renal function. Monitor electrolytes and replace as needed ENDOCRINE: Maintain blood glucose between 100-180 at all times. Hypoglycemia protocol in place INFECTIOUS DISEASE: Trend temperature, WBC and procalcitonin level Follow cultures, deescalate antibiotics as soon as possible. Panculture if new onset fever ONCOLOGY/HEMATOLOGY/COAGULATION: Monitor for s/s of bleeding Monitor hemoglobin, coagulation studies as needed SKIN: Pressure ulcer prevention per facility protocol Specialty mattress ORTHO/REHAB: Continue PT/OT Prophylaxis: Continue GI and DVT prophylaxis Code Status: Full Resuscitation Disposition: TBD Other: Total patient care time exceeds 45 minutes excluding all procedures. HANNAH BARRON NP Jan 12, 2025 19:19
[2025-01-12] MEDS: IpraTROPium 0.5 MG/2.5 ML INH IH SCH (19:24)
[2025-01-12] MEDS: DOXYCYCLINE HYCLATE 100 MG TABLET PO SCH (20:18)
[2025-01-12] MEDS: guaiFENesin-DM 200/20MG 10ML PO PRN (22:46)
--- NOTE | 2025-01-12 23:30 | NUR ---
Respiratory distress Pt stating she feels very anxious and can't catch her breath - pt on NC 2L. Pt satting 89%. O2 increased but pt RR and HR increasing with pt stating "I'm having anxiety, I need Ativan or something." NRB placed in mean time and pt felt better and laid down. RR and breathing improved to baseline. RT at bedside to give treatment. Lung sounds are coarse - a change from prior assessment. Telemetry stating ST 130s with PVCs. P waves seen. Pt stating she still would like anxiety medication, informed would page and inform on-call to see what orders he would like given changes/situation. Upon going to page BIS, pt heard in distress. Stridor now heard and pt gasping for air - pt oriented but in visible distress. Tele informs HR is in the 150s, pt still receiving treatment. Began informing on-call Rob Lund LABORATORY INSPECTOR of situation but Cj NICOLEN was already on floor and assisted at bedside. Morphine 2mg given, 0.25 ativan given, 125 solumedrol given. Atrovent continuous x1 hr, then Q2hr x4 doses, and Q4hr after. ABG at 0100. RT at bedside, aware of all orders. VS charted - no deviation from baseline in BP. As of 32 Pt remains oriented, able to state to nurse "I feel better, tired but better" BP 144/71. 99% Sat. 86 HR SR. RR 20.
[2025-01-12] MEDS: IpraTROPium 0.5 MG/2.5 ML INH IH ONE (23:49)
[2025-01-12] MEDS: morPHINE 2 MG SYG IVP ONE (23:58)
[2025-01-12] MEDS: Solu-medROL 125MG VIAL IVP ONE (23:58)
[2025-01-13] VITALS (19 sets, daily range): BP systolic 129–144; BP diastolic 71–98; PULSE 77–103; RESP 16–24; TEMP 97.7–98.4; O2SAT 95–100
[2025-01-13] MEDS: LORazepam 2 MG/ML 1 ML VIAL ONE (00:04)
[2025-01-13] MEDS: LORazepam 2 MG/ML 1 ML VIAL IVP ONE ×2 (00:04→02:23)
[2025-01-13] MEDS ORDERED: IpraTROPium 0.5 MG/2.5 ML INH IH SCH (00:30)
[2025-01-13] MEDS ORDERED: IpraTROPium 0.5 MG/2.5 ML INH IH PRN ×2 (00:30)
[2025-01-13] MEDS: IpraTROPium 0.5 MG/2.5 ML INH IH SCH ×2 (00:30→10:37)
[2025-01-13] MEDS: IpraTROPium 0.5 MG/2.5 ML INH IH ONE (00:36)
[2025-01-13 01:28] LABS: ABG BASE EXCESS -1.2 mmol/L (-2.0-3.0); ABG HCO3 24.6 mmol/L (21.0-28.0); ABG OXYGEN SATURATION 98.5 % (94.0-98.0); ABG PCO2 45 mmHg (32-45); ABG PH 7.354 (7.350-7.450); PO2, ARTERIAL BG 133.4 mmHg (83.0-108.0)
--- NOTE | 2025-01-13 03:30 | NUR ---
Status update Pt tolerating BiPAP well. Pt sleeping comfortably, but remains aax3. Pt states to nurse while changing "That stuff you gave me really knocked me out." Lungs sounds have improved as well. Pt RRs at 20, satting 100%. Addendum: 01/13/25 at 0600 by CASS CUBA LVN LVN [id number] addendum to add: Pt SR in 80s.
[2025-01-13 05:16] LABS: HEMATOCRIT 30.2 % (36-48); MEAN CORPUSCULAR HEMOGLOBIN 36.4 pg (27.0-33.0); MEAN CORPUSCULAR HGB CONC 32.8 g/dL (32.0-36.0); RED BLOOD CELL COUNT(AUTO) 2.72 MIL/uL (4.00-5.50); RED CELL DISTRIBUTION WIDTH 17.2 % (11.0-15.5); WHITE BLOOD COUNT (AUTO) 15.7 K/uL (4.8-10.8)
[2025-01-13 05:28] LABS: CREATININE 0.7 mg/dL (0.5-1.0); MAGNESIUM 1.9 mg/dL (1.80-2.40); POTASSIUM 3.8 mmol/L (3.5-5.1)
[2025-01-13] MEDS: Solu-medROL 40MG VIAL IVP SCH (06:32)
--- NOTE | 2025-01-13 16:10 | HMCIMG ---
CT CHEST W/O CONTRAST HISTORY: COPD COMPARISON: 11/28/2024 TECHNIQUE: Multiple sequential axial images of the chest were obtained from the thoracic inlet through upper abdomen. Patient was not given contrast through intravenous route. FINDINGS: Small bilateral pleural effusions are seen. There are interstitial fibrosis. Coronary arterial calcifications are seen. Mild COPD changes are seen. No pleural effusion or pericardial effusion is seen. There is no evidence of pneumothorax. There are normal size mediastinal and hilar lymph nodes. The heart is not enlarged. Degenerative changes of the thoracolumbar spine are present. There is no evidence of adrenal nodule. IMPRESSION: 1. Bilateral pleural effusions with interstitial fibrosis. Mild COPD changes are seen. CT was performed with one or more following dose reduction techniques: automated exposure control, adjustment of the mA and kv according to patient's size, or use of a iterative reconstruction technique.
--- NOTE | 2025-01-13 22:28 | PN ---
[facility] PROGRESS NOTE Date Patient Seen: Jan 13, 2025 Time of Visit: 22:27 Supervising Physician: Dr. Tao Primary Care Physician: LIANA Hernandez MD Outpatient Specialists: [ ] Inpatient Consults: [ ] PROBLEM LIST: Acute hypoxemic hypercarbic respiratory failure POA. Respiratory acidosis. COPD exacerbation. Current smoker, consumes 6 cigarettes sticks per day. Hypokalemia. Hypomagnesemia Dehydration. Lactic acidosis. Hypothyroidism. INTERVAL HISTORY: 01/12/2025: At the time of my evaluation, the patient was sitting up bed and enjoying her meal. The staff nurse reports no acute events overnight. The patient is currently on a nasal cannula and with optimal oxygenation. On the monitor she is hemodynamically stable. Laboratory data today showed a interval increase of WBC to 15.6, H&H 11.5/34.2 and a platelet count of 300. Chemistry panel was notable for a magnesium of 1.60. Microbiology data showed no growth in blood or urine. Imaging of the chest showed no acute airspace disease. No other complaint. 01/13/2025: At the time of my evaluation, the patient was lying in bed. The staff nurse reports no acute events overnight. She was awake, alert and with appropriate responses. Patient was on oxygen supplementation via nasal cannula 2 L. on the monitor, the patient was hemodynamically stable. room air and denies any shortness of breath. Laboratory data today showed elevated WBC of 15.7, H&H 9.9/30.2 and a platelet count of 246. Chemistry panel was unremarkable. No other complaint. REVIEW OF SYSTEMS: 12 point ROS reviewed with patient. Pertinent positives mentioned above. Otherwise negative. PHYSICAL EXAM: GENERAL: Alert, weak, awake oriented x 3 HEENT: EOMI, Sclera non icteric, moist mucosa NECK: Supple, no JVD, trachea midline LUNGS: Diminished breath sounds bilaterally. No wheezes HEART: Regular rate and rhythm. Normal S1 and S2, without murmurs ABD: Abdomen soft, nontender. Bowel sounds present EXT: No clubbing cyanosis or edema NEURO: Alert and oriented to person, follows commands Vital Signs (last 8hr) Date Time Temp Pulse Resp B/P (MAP) Pulse Ox O2 Delivery O2 Flow Rate FiO2 01/13/25 22:26 83 20 01/13/25 20:00 97 Nasal Cannula* 2 28 01/13/25 19:56 97.7 83 16 129/81 96 Nasal Cannula 2.0 01/13/25 19:15 89 20 N/A Room Air 2.0 28 01/13/25 19:15 89 20 01/13/25 16:14 98.4 103 19 129/98 97 01/13/25 14:57 80 20 LABS: Hematology Labs: Test 01/13/25 05:00 01/12/25 01:49 Range/Units White Blood Count 15.7 H 4.8-10.8 K/uL Red Blood Count 2.72 L 4.00-5.50 MIL/uL Hemoglobin 9.9 L 12.0-16.0 g/dL Hematocrit 30.2 L 36-48 % Mean Corpuscular Volume 111.0 H 79-99 fL Mean Corpuscular Hemoglobin 36.4 H 27.0-33.0 pg Mean Corpuscular Hemoglobin Concent 32.8 32.0-36.0 g/dL Red Cell Distribution Width 17.2 H 11.0-15.5 % Platelet Count 246 130-400 K/uL Mean Platelet Volume 11.0 H 7.5-10.5 fL Nucleated Red Blood Cells 0.0 0.0-0.19 % Immature Granulocyte % (Auto) 0.8 0-1 % Neutrophils (%) (Auto) 94.4 H 40.0-77.0 % Lymphocytes (%) (Auto) 3.1 L 21.0-51.0 % Monocytes (%) (Auto) 1.6 L 3.0-13.0 % Eosinophils (%) (Auto) 0.0 0.0-8.0 % Basophils (%) (Auto) 0.1 0.0-5.0 % Neutrophils # (Auto) 14.7 H 1.8-7.7 K/uL Lymphocytes # (Auto) 0.5 L 1.0-4.8 K/uL Monocytes # (Auto) 0.3 0.1-1.0 K/uL Eosinophils # (Auto) 0.00 0.00-0.70 K/uL Basophils # (Auto) 0.01 0.00-0.20 K/uL Absolute Immature Granulocyte (auto 0.12 0-1 K/uL White Cell Morphology Comment See comments Chemistry Labs: Test 01/13/25 20:23 01/13/25 05:00 01/12/25 01:49 Range/Units Whole Blood Glucose 147 #H 70-110 MG/DL Sodium Level 139 136-145 mmol/L Potassium Level 3.8 3.5-5.1 mmol/L Chloride Level 105 101-111 mmol/L Carbon Dioxide Level 31 21-32 mmol/L Blood Urea Nitrogen 13 7-18 mg/dL Creatinine 0.7 0.5-1.0 mg/dL Glomerular Filtration Rate Calc 88 >90 mL/min Random Glucose 110 H 70-105 mg/dL Total Calcium 8.2 L 8.5-10.1 mg/dL Magnesium Level 1.90 1.80-2.40 mg/dL Phosphorus Level 2.9 2.5-4.9 mg/dL Procalcitonin 0.09 0.05-0.5 ng/mL DIAGNOSTICS / RADIOLOGY RESULTS: [ ] PLAN The patient was admitted to [facility] hospitalist group. I am going to review and reconcile medication list once this becomes available. She will remain on BiPAP therapy for now. We will later attempt to transition back to a nasal cannula and monitor oxygen saturation. The patient was started on steroid therapy with Solu-Medrol 40 b.i.d. IV, we will keep that for now as well as the bronchodilator therapy. She was placed on empiric antibiotic therapy with a zithromycin and Rocephin, will continue with Zithromax. I am going to discontinue the IV fluids, lactic acidosis corrected. Electrolyte imbalance will be replaced per the protocol. I am going to request repeat cardiac enzymes x2 as well as potassium and magnesium level. We will continue monitoring the respiratory status and adjust as necessary. We will continue provide general supportive care, GI and DVT prophylaxis. Further orders per attending MD and hospital course. 01/12/2025: For now, we are going to continue current management for the patient. We will add doxycycline to the antibiotic regimen considering the increase of WBCs today, we will also recommend chest physiotherapy and bronchodilator therapy. I am going to request PT to evaluate and treat. We will monitor the patient's progress and management. We will continue to provide general supportive care, GI and DVT prophylaxis. Further orders per attending MD and hospital course. 01/13/2025: For now, going to continue current management for the patient. We will provide oxygen supplementation as necessary and monitor the vital signs. CT of the chest was ordered and we will await results. We are going to repeat surveillance labs morning. We will monitor the patient's progress and response to management. Further orders per attending MD and hospital course. NEURO: Minimize central acting medications as possible. Maintain fall precautions, adequate lighting during the day PULMONARY: Supplemental 02 as needed. Maintain aspiration precautions at all times CARDIOVASCULAR: Follow hemodynamics. Vital signs per facility protocol GI & NUTRITION: Continue with nutritional support. Continue stool softeners and laxatives as needed. KIDNEYS & ELECTROLYTES: Strict monitoring of intake, output and overall fluid balance. Avoid nephrotoxic medications to the extent possible. Medications to be dosed according to renal function. Monitor electrolytes and replace as needed ENDOCRINE: Maintain blood glucose between 100-180 at all times. Hypoglycemia protocol in place INFECTIOUS DISEASE: Trend temperature, WBC and procalcitonin level Follow cultures, deescalate antibiotics as soon as possible. Panculture if new onset fever ONCOLOGY/HEMATOLOGY/COAGULATION: Monitor for s/s of bleeding Monitor hemoglobin, coagulation studies as needed SKIN: Pressure ulcer prevention per facility protocol Specialty mattress ORTHO/REHAB: Continue PT/OT Prophylaxis: Continue GI and DVT prophylaxis Code Status: Full Resuscitation Disposition: TBD Other: Total patient care time exceeds 45 minutes excluding all procedures. HANNAH BARRON NP Jan 13, 2025 22:28
[2025-01-14] VITALS (16 sets, daily range): BP systolic 136–156; BP diastolic 82–96; PULSE 59–133; RESP 16–23; TEMP 96.9–98.5; O2SAT 95–99
[2025-01-14 05:00] LABS: BASOPHILS # (AUTO) 0.02 K/uL (0.00-0.20); BASOPHILS % (AUTO) 0.1 % (0.0-5.0); EOSINOPHILS # (AUTO) 0.01 K/uL (0.00-0.70); EOSINOPHILS % (AUTO) 0.1 % (0.0-8.0); HEMATOCRIT 32.4 % (36-48); IMMATURE GRANULOCYTE ABSOLUTE 0.16 K/uL (0-1); LYMPHOCYTES # (AUTO) 0.4 K/uL (1.0-4.8); LYMPHOCYTES % (AUTO) 2.3 % (21.0-51.0); MEAN CORPUSCULAR HEMOGLOBIN 36.2 pg (27.0-33.0); MEAN CORPUSCULAR HGB CONC 32.4 g/dL (32.0-36.0); MEAN CORPUSCULAR VOLUME 111.7 fL (79-99); MONOCYTES # (AUTO) 0.7 K/uL (0.1-1.0); MONOCYTES % (AUTO) 4.1 % (3.0-13.0); NEUTROPHILS # (AUTO) 15.8 K/uL (1.8-7.7); NEUTROPHILS % (AUTO) 92.5 % (40.0-77.0); PLATELET COUNT (AUTO) 269 K/uL (130-400); RED CELL DISTRIBUTION WIDTH 17.2 % (11.0-15.5); WHITE BLOOD COUNT (AUTO) 17.1 K/uL (4.8-10.8)
[2025-01-14 05:18] LABS: CREATININE 0.7 mg/dL (0.5-1.0)
[2025-01-14] MEDS ORDERED: LORazepam 2 MG/ML 1 ML VIAL IVP ONE (05:30)
[2025-01-14] MEDS: LORazepam 2 MG/ML 1 ML VIAL IVP PRN (05:30)
--- NOTE | 2025-01-14 05:30 | NUR ---
RESPIRATORY DISTRESS OF THIS TIME, PATIENT HAS BEEN REFUSING BIPAP TREATMENT ALL NIGHT, NO MATTER HOW MANY TIMES THE RESPIRATORY THERAPIST EXPLAINED TO HER THE BENEFIT OUTWEIGHTING THE DISCOMFORT. I EXPLAINED TO PATIENT THE NEED OF THE BIPAP AT LEAST FOR COUPLE HOURS, BUT STILL REFUSED, ONLY WANTING TO BE ON THE 2L NC, UNTIL THIS TIME WHEN SHE WENT TO RESPIRATORY DISTRESS AND I HAD TO TYLER TO GIVE HER ATIVAN IN ORDER TO HAVE HER TOLERATE THE BIPAP 12/5 @ 50%, RATE 14 NOW SATING @B 100% WILL CONT TO MONITOR
--- NOTE | 2025-01-14 06:50 | NUR ---
REPORT GIVEN TO NURSE SKYLER NG RN, WILL CONT TO MONITOR
--- NOTE | 2025-01-14 23:05 | PN ---
[facility] PROGRESS NOTE Date Patient Seen: Jan 14, 2025 Time of Visit: 23:02 Supervising Physician: Dr. Tao Primary Care Physician: LIANA Hernandez MD Outpatient Specialists: [ ] Inpatient Consults: [ ] PROBLEM LIST: Acute hypoxemic hypercarbic respiratory failure POA. Respiratory acidosis. COPD/Emphysema with exacerbation. Current smoker, consumes 6 cigarettes sticks per day. Hypokalemia. Hypomagnesemia Dehydration. Lactic acidosis. Hypothyroidism. INTERVAL HISTORY: 01/12/2025: At the time of my evaluation, the patient was sitting up bed and enjoying her meal. The staff nurse reports no acute events overnight. The patient is currently on a nasal cannula and with optimal oxygenation. On the monitor she is hemodynamically stable. Laboratory data today showed a interval increase of WBC to 15.6, H&H 11.5/34.2 and a platelet count of 300. Chemistry panel was notable for a magnesium of 1.60. Microbiology data showed no growth in blood or urine. Imaging of the chest showed no acute airspace disease. No other complaint. 01/13/2025: At the time of my evaluation, the patient was lying in bed. The staff nurse reports no acute events overnight. She was awake, alert and with appropriate responses. Patient was on oxygen supplementation via nasal cannula 2 L. on the monitor, the patient was hemodynamically stable. room air and denies any shortness of breath. Laboratory data today showed elevated WBC of 15.7, H&H 9.9/30.2 and a platelet count of 246. Chemistry panel was unremarkable. No other complaint. 01/14/2025: At the time of my evaluation, the patient was. She remains on oxygen supplementation via nasal cannula and on the monitor, vital signs are stable. Laboratory data showed an increase of WBC to 17.1, H&H 10.5/32.4 and a platelet count of 69. Chemistry panel was unremarkable. The patient remains on steroid therapy bronchodilator and antibiotic course. CT of the chest today showed dermatitis changes with air trapping, bibasal fibrosis and bilateral pneumonia. No other complaint. REVIEW OF SYSTEMS: 12 point ROS reviewed with patient. Pertinent positives mentioned above. Otherwise negative. PHYSICAL EXAM: GENERAL: Alert, weak, awake oriented x 3 HEENT: EOMI, Sclera non icteric, moist mucosa NECK: Supple, no JVD, trachea midline LUNGS: Diminished breath sounds bilaterally. No wheezes HEART: Regular rate and rhythm. Normal S1 and S2, without murmurs ABD: Abdomen soft, nontender. Bowel sounds present EXT: No clubbing cyanosis or edema NEURO: Alert and oriented to person, follows commands Vital Signs (last 8hr) Date Time Temp Pulse Resp B/P (MAP) Pulse Ox O2 Delivery O2 Flow Rate FiO2 01/14/25 20:00 97.9 59 18 136/82 99 Nasal Cannula 2.0 01/14/25 20:00 97 Nasal Cannula* 2 28 01/14/25 19:33 86 20 N/Cannula Low lpm 2.0 28 01/14/25 19:33 88 22 01/14/25 16:56 97.9 83 18 150/86 96 Nasal Cannula 2.0 LABS: Hematology Labs: Test 01/14/25 03:44 Range/Units White Blood Count 17.1 H 4.8-10.8 K/uL Red Blood Count 2.90 L 4.00-5.50 MIL/uL Hemoglobin 10.5 L 12.0-16.0 g/dL Hematocrit 32.4 L 36-48 % Mean Corpuscular Volume 111.7 H 79-99 fL Mean Corpuscular Hemoglobin 36.2 H 27.0-33.0 pg Mean Corpuscular Hemoglobin Concent 32.4 32.0-36.0 g/dL Red Cell Distribution Width 17.2 H 11.0-15.5 % Platelet Count 269 130-400 K/uL Mean Platelet Volume 11.4 H 7.5-10.5 fL Immature Granulocyte % (Auto) 0.9 0-1 % Neutrophils (%) (Auto) 92.5 H 40.0-77.0 % Lymphocytes (%) (Auto) 2.3 L 21.0-51.0 % Monocytes (%) (Auto) 4.1 3.0-13.0 % Eosinophils (%) (Auto) 0.1 0.0-8.0 % Basophils (%) (Auto) 0.1 0.0-5.0 % Neutrophils # (Auto) 15.8 H 1.8-7.7 K/uL Lymphocytes # (Auto) 0.4 L 1.0-4.8 K/uL Monocytes # (Auto) 0.7 0.1-1.0 K/uL Eosinophils # (Auto) 0.01 0.00-0.70 K/uL Basophils # (Auto) 0.02 0.00-0.20 K/uL Absolute Immature Granulocyte (auto 0.16 0-1 K/uL Nucleated Red Blood Cells 0.0 0.0-0.19 % Chemistry Labs: Test 01/14/25 19:49 01/14/25 03:44 Range/Units Whole Blood Glucose 151 H 70-110 MG/DL Sodium Level 138 136-145 mmol/L Potassium Level 4.0 3.5-5.1 mmol/L Chloride Level 103 101-111 mmol/L Carbon Dioxide Level 29 21-32 mmol/L Blood Urea Nitrogen 16 7-18 mg/dL Creatinine 0.7 0.5-1.0 mg/dL Glomerular Filtration Rate Calc 88 >90 mL/min Random Glucose 155 H 70-105 mg/dL Total Calcium 8.7 8.5-10.1 mg/dL Magnesium Level 1.70 L 1.80-2.40 mg/dL DIAGNOSTICS / RADIOLOGY RESULTS: [ ] PLAN The patient was admitted to MD hospitalist group. I am going to review and reconcile medication list once this becomes available. She will remain on BiPAP therapy for now. We will later attempt to transition back to a nasal cannula and monitor oxygen saturation. The patient was started on steroid therapy with Solu-Medrol 40 b.i.d. IV, we will keep that for now as well as the bronchodilator therapy. She was placed on empiric antibiotic therapy with azithromycin and Rocephin, will continue with Zithromax. I am going to discontinue the IV fluids, lactic acidosis corrected. Electrolyte imbalance will be replaced per the protocol. I am going to request repeat cardiac enzymes x2 as well as potassium and magnesium level. We will continue monitoring the respiratory status and adjust as necessary. We will continue provide general supportive care, GI and DVT prophylaxis. Further orders per attending MD and hospital course. 01/12/2025: For now, we are going to continue current management for the patient. We will add doxycycline to the antibiotic regimen considering the increase of WBCs today, we will also recommend chest physiotherapy and bronchodilator therapy. I am going to request PT to evaluate and treat. We will monitor the patient's progress and management. We will continue to provide general supportive care, GI and DVT prophylaxis. Further orders per attending MD and hospital course. 01/13/2025: For now, going to continue current management for the patient. We will provide oxygen supplementation as necessary and monitor the vital signs. CT of the chest was ordered and we will await results. We are going to repeat surveillance labs morning. We will monitor the patient's progress and response to management. Further orders per attending MD and hospital course. 01/14/2025: For now, going to continue current management for the patient. She will continue on oxygen supplementation, antibiotic therapy, bronchodilator therapy and steroid therapy. She was advised of the importance of smoking cessation. Patient voiced understanding. We will repeat surveillance labs in the morning. Physical therapy was consulted to work with the patient. We will monitor progress and response to management. Further orders per attending MD and hospital NEURO: Minimize central acting medications as possible. Maintain fall precautions, adequate lighting during the day PULMONARY: Supplemental 02 as needed. Maintain aspiration precautions at all times CARDIOVASCULAR: Follow hemodynamics. Vital signs per facility protocol GI & NUTRITION: Continue with nutritional support. Continue stool softeners and laxatives as needed. KIDNEYS & ELECTROLYTES: Strict monitoring of intake, output and overall fluid balance. Avoid nephrotoxic medications to the extent possible. Medications to be dosed according to renal function. Monitor electrolytes and replace as needed ENDOCRINE: Maintain blood glucose between 100-180 at all times. Hypoglycemia protocol in place INFECTIOUS DISEASE: Trend temperature, WBC and procalcitonin level Follow cultures, deescalate antibiotics as soon as possible. Panculture if new onset fever ONCOLOGY/HEMATOLOGY/COAGULATION: Monitor for s/s of bleeding Monitor hemoglobin, coagulation studies as needed SKIN: Pressure ulcer prevention per facility protocol Specialty mattress ORTHO/REHAB: Continue PT/OT Prophylaxis: Continue GI and DVT prophylaxis Code Status: Full Resuscitation Disposition: TBD Other: Total patient care time exceeds 35 minutes excluding all procedures. HANNAH BARRON NP Jan 14, 2025 23:05
[2025-01-15] VITALS (12 sets, daily range): BP systolic 119–159; BP diastolic 72–97; PULSE 76–104; RESP 18–22; TEMP 97.3–98.3; O2SAT 97
[2025-01-15 03:50] LABS: BASOPHILS # (AUTO) 0.01 K/uL (0.00-0.20); BASOPHILS % (AUTO) 0.1 % (0.0-5.0); EOSINOPHILS # (AUTO) 0.01 K/uL (0.00-0.70); EOSINOPHILS % (AUTO) 0.1 % (0.0-8.0); HEMATOCRIT 33.9 % (36-48); IMMATURE GRANULOCYTE ABSOLUTE 0.08 K/uL (0-1); LYMPHOCYTES # (AUTO) 0.3 K/uL (1.0-4.8); LYMPHOCYTES % (AUTO) 2.6 % (21.0-51.0); MEAN CORPUSCULAR HEMOGLOBIN 36.7 pg (27.0-33.0); MEAN CORPUSCULAR VOLUME 111.1 fL (79-99); MONOCYTES # (AUTO) 0.7 K/uL (0.1-1.0); MONOCYTES % (AUTO) 5.3 % (3.0-13.0); NEUTROPHILS # (AUTO) 12.1 K/uL (1.8-7.7); NEUTROPHILS % (AUTO) 91.3 % (40.0-77.0); PLATELET COUNT (AUTO) 263 K/uL (130-400); RED BLOOD CELL COUNT(AUTO) 3.05 MIL/uL (4.00-5.50); RED CELL DISTRIBUTION WIDTH 17.2 % (11.0-15.5); WHITE BLOOD COUNT (AUTO) 13.2 K/uL (4.8-10.8)
[2025-01-15 03:57] LABS: CREATININE 0.6 mg/dL (0.5-1.0); POTASSIUM 4.3 mmol/L (3.5-5.1)
--- NOTE | 2025-01-15 07:54 | NUR ---
REPORT GIVEN TO NURSE NORI ENRIQUEZ RN, WILL CONT TO MONITOR
[2025-01-15] MEDS ORDERED: IpraTROPium 0.5 MG/2.5 ML INH IH PRN (11:09)
[2025-01-15] MEDS ORDERED: ALBUTEROL 0.083% 2.5 MG/3 ML INH IH SCH (14:00)
[2025-01-15] MEDS: ALBUTEROL INHALER 90MCG/INH IH PRN (15:04)
[2025-01-15] MEDS ORDERED: ASPI-1197 PO (16:39)
--- NOTE | 2025-01-15 23:08 | PN ---
[facility] PROGRESS NOTE Date Patient Seen: Jan 15, 2025 Time of Visit: 23:07 Supervising Physician: Dr. Tao Primary Care Physician: LIANA Hernandez MD Outpatient Specialists: [ ] Inpatient Consults: [ ] PROBLEM LIST: Acute hypoxemic hypercarbic respiratory failure POA. Respiratory acidosis. COPD/Emphysema with exacerbation. Current smoker, consumes 6 cigarettes sticks per day. Hypokalemia. Hypomagnesemia Dehydration. Lactic acidosis. Hypothyroidism. INTERVAL HISTORY: 01/12/2025: At the time of my evaluation, the patient was sitting up bed and enjoying her meal. The staff nurse reports no acute events overnight. The patient is currently on a nasal cannula and with optimal oxygenation. On the monitor she is hemodynamically stable. Laboratory data today showed a interval increase of WBC to 15.6, H&H 11.5/34.2 and a platelet count of 300. Chemistry panel was notable for a magnesium of 1.60. Microbiology data showed no growth in blood or urine. Imaging of the chest showed no acute airspace disease. No other complaint. 01/13/2025: At the time of my evaluation, the patient was lying in bed. The staff nurse reports no acute events overnight. She was awake, alert and with appropriate responses. Patient was on oxygen supplementation via nasal cannula 2 L. on the monitor, the patient was hemodynamically stable. room air and denies any shortness of breath. Laboratory data today showed elevated WBC of 15.7, H&H 9.9/30.2 and a platelet count of 246. Chemistry panel was unremarkable. No other complaint. 01/14/2025: At the time of my evaluation, the patient was. She remains on oxygen supplementation via nasal cannula and on the monitor, vital signs are stable. Laboratory data showed an increase of WBC to 17.1, H&H 10.5/32.4 and a platelet count of 69. Chemistry panel was unremarkable. The patient remains on steroid therapy bronchodilator and antibiotic course. CT of the chest today showed dermatitis changes with air trapping, bibasal fibrosis and bilateral pneumonia. No other complaint. 01/15/2025: At the time of my evaluation, the patient was sitting up in bed and was visiting with family members. She remains on nasal cannula currently at 3 liters/minute. On the monitor, she has seen hemodynamically stable. Laboratory data today have improved to 13.2, H and H of 11.2/32.9 and a platelet count of 263. Chemistry panel was unremarkable. No imaging of the chest today for review. No other complaint REVIEW OF SYSTEMS: 12 point ROS reviewed with patient. Pertinent positives mentioned above. Otherwise negative. PHYSICAL EXAM: GENERAL: Alert, weak, awake oriented x 3 HEENT: EOMI, Sclera non icteric, moist mucosa NECK: Supple, no JVD, trachea midline LUNGS: Diminished breath sounds bilaterally. No wheezes HEART: Regular rate and rhythm. Normal S1 and S2, without murmurs ABD: Abdomen soft, nontender. Bowel sounds present EXT: No clubbing cyanosis or edema NEURO: Alert and oriented to person, follows commands Vital Signs (last 8hr) Date Time Temp Pulse Resp B/P (MAP) Pulse Ox O2 Delivery O2 Flow Rate FiO2 01/15/25 20:14 78 18 01/15/25 19:57 98.2 78 18 122/72 94 Nasal Cannula 2.0 01/15/25 19:57 97 Nasal Cannula* 2 28 01/15/25 16:00 97.3 85 20 119/76 93 Nasal Cannula 2.0 LABS: Hematology Labs: Test 01/15/25 03:28 Range/Units White Blood Count 13.2 H 4.8-10.8 K/uL Red Blood Count 3.05 L 4.00-5.50 MIL/uL Hemoglobin 11.2 L 12.0-16.0 g/dL Hematocrit 33.9 L 36-48 % Mean Corpuscular Volume 111.1 H 79-99 fL Mean Corpuscular Hemoglobin 36.7 H 27.0-33.0 pg Mean Corpuscular Hemoglobin Concent 33.0 32.0-36.0 g/dL Red Cell Distribution Width 17.2 H 11.0-15.5 % Platelet Count 263 130-400 K/uL Mean Platelet Volume 11.2 H 7.5-10.5 fL Immature Granulocyte % (Auto) 0.6 0-1 % Neutrophils (%) (Auto) 91.3 H 40.0-77.0 % Lymphocytes (%) (Auto) 2.6 L 21.0-51.0 % Monocytes (%) (Auto) 5.3 3.0-13.0 % Eosinophils (%) (Auto) 0.1 0.0-8.0 % Basophils (%) (Auto) 0.1 0.0-5.0 % Neutrophils # (Auto) 12.1 H 1.8-7.7 K/uL Lymphocytes # (Auto) 0.3 L 1.0-4.8 K/uL Monocytes # (Auto) 0.7 0.1-1.0 K/uL Eosinophils # (Auto) 0.01 0.00-0.70 K/uL Basophils # (Auto) 0.01 0.00-0.20 K/uL Absolute Immature Granulocyte (auto 0.08 0-1 K/uL Nucleated Red Blood Cells 0.0 0.0-0.19 % Chemistry Labs: Test 01/15/25 20:20 01/15/25 16:07 01/15/25 03:28 01/14/25 03:44 Range/Units Whole Blood Glucose 136 H 70-110 MG/DL Bedside Glucose Comment Notified Nurse Sodium Level 139 136-145 mmol/L Potassium Level 4.3 3.5-5.1 mmol/L Chloride Level 106 101-111 mmol/L Carbon Dioxide Level 31 21-32 mmol/L Blood Urea Nitrogen 24 H 7-18 mg/dL Creatinine 0.6 0.5-1.0 mg/dL Glomerular Filtration Rate Calc 92 >90 mL/min Random Glucose 143 H 70-105 mg/dL Total Calcium 8.5 8.5-10.1 mg/dL Magnesium Level 1.70 L 1.80-2.40 mg/dL DIAGNOSTICS / RADIOLOGY RESULTS: [ ] PLAN The patient was admitted to MD hospitalist group. I am going to review and reconcile medication list once this becomes available. She will remain on BiPAP therapy for now. We will later attempt to transition back to a nasal cannula and monitor oxygen saturation. The patient was started on steroid therapy with Solu-Medrol 40 b.i.d. IV, we will keep that for now as well as the bronchodilator therapy. She was placed on empiric antibiotic therapy with a zithromycin and Rocephin, will continue with Zithromax. I am going to discontinue the IV fluids, lactic acidosis corrected. Electrolyte imbalance will be replaced per the protocol. I am going to request repeat cardiac enzymes x2 as well as potassium and magnesium level. We will continue monitoring the respiratory status and adjust as necessary. We will continue provide general supportive care, GI and DVT prophylaxis. Further orders per attending MD and hospital course. 01/12/2025: For now, we are going to continue current management for the patient. We will add doxycycline to the antibiotic regimen considering the increase of WBCs today, we will also recommend chest physiotherapy and bronchodilator therapy. I am going to request PT to evaluate and treat. We will monitor the patient's progress and management. We will continue to provide general supportive care, GI and DVT prophylaxis. Further orders per attending MD and hospital course. 01/13/2025: For now, going to continue current management for the patient. We will provide oxygen supplementation as necessary and monitor the vital signs. CT of the chest was ordered and we will await results. We are going to repeat surveillance labs morning. We will monitor the patient's progress and response to management. Further orders per attending MD and hospital course. 01/14/2025: For now, going to continue current management for the patient. She will continue on oxygen supplementation, antibiotic therapy, bronchodilator therapy and steroid therapy. She was advised of the importance of smoking cessation. Patient voiced understanding. We will repeat surveillance labs in the morning. Physical therapy was consulted to work with the patient. We will monitor progress and response to management. Further orders per attending MD and hospital 01/15/2025: For now, we will continue current management for the patient. The initial plan was to discharge the patient home today, but on auscultation, she had a slight wheeze. Patient does have home O2 available. Patient also reported that she is not ready to be discharged home. Patient was up and ambulated with therapy. We will monitor the patient overnight and we will possibly discharge in the next 24-48 hours. We will repeat surveillance labs in the morning including a chest x-ray. We will continue to provide general supportive care, GI and DVT prophylaxis. Further orders per attending MD and hospital course. NEURO: Minimize central acting medications as possible. Maintain fall precautions, adequate lighting during the day PULMONARY: Supplemental 02 as needed. Maintain aspiration precautions at all times CARDIOVASCULAR: Follow hemodynamics. Vital signs per facility protocol GI & NUTRITION: Continue with nutritional support. Continue stool softeners and laxatives as needed. KIDNEYS & ELECTROLYTES: Strict monitoring of intake, output and overall fluid balance. Avoid nephrotoxic medications to the extent possible. Medications to be dosed according to renal function. Monitor electrolytes and replace as needed ENDOCRINE: Maintain blood glucose between 100-180 at all times. Hypoglycemia protocol in place INFECTIOUS DISEASE: Trend temperature, WBC and procalcitonin level Follow cultures, deescalate antibiotics as soon as possible. Panculture if new onset fever ONCOLOGY/HEMATOLOGY/COAGULATION: Monitor for s/s of bleeding Monitor hemoglobin, coagulation studies as needed SKIN: Pressure ulcer prevention per facility protocol Specialty mattress ORTHO/REHAB: Continue PT/OT Prophylaxis: Continue GI and DVT prophylaxis Code Status: Full Resuscitation Disposition: TBD Other: Total patient care time exceeds 35 minutes excluding all procedures. HANNAH BARRON NP Jan 15, 2025 23:08
[2025-01-16] VITALS (13 sets, daily range): BP systolic 118–152; BP diastolic 75–86; PULSE 68–82; RESP 18–34; TEMP 97.1–98.4; O2SAT 94–97
[2025-01-16 03:53] LABS: BASOPHILS # (AUTO) 0.01 K/uL (0.00-0.20); BASOPHILS % (AUTO) 0.1 % (0.0-5.0); EOSINOPHILS # (AUTO) 0.01 K/uL (0.00-0.70); EOSINOPHILS % (AUTO) 0.1 % (0.0-8.0); HEMATOCRIT 32.8 % (36-48); IMMATURE GRANULOCYTE ABSOLUTE 0.11 K/uL (0-1); LYMPHOCYTES # (AUTO) 0.3 K/uL (1.0-4.8); LYMPHOCYTES % (AUTO) 2.7 % (21.0-51.0); MEAN CORPUSCULAR HEMOGLOBIN 36.4 pg (27.0-33.0); MEAN CORPUSCULAR HGB CONC 32.9 g/dL (32.0-36.0); MEAN CORPUSCULAR VOLUME 110.4 fL (79-99); MONOCYTES # (AUTO) 0.6 K/uL (0.1-1.0); MONOCYTES % (AUTO) 4.7 % (3.0-13.0); NEUTROPHILS # (AUTO) 11.3 K/uL (1.8-7.7); NEUTROPHILS % (AUTO) 91.5 % (40.0-77.0); PLATELET COUNT (AUTO) 246 K/uL (130-400); RED BLOOD CELL COUNT(AUTO) 2.97 MIL/uL (4.00-5.50); RED CELL DISTRIBUTION WIDTH 16.7 % (11.0-15.5); WHITE BLOOD COUNT (AUTO) 12.4 K/uL (4.8-10.8)
[2025-01-16 04:17] LABS: CREATININE 0.7 mg/dL (0.5-1.0)
--- NOTE | 2025-01-16 07:35 | NUR ---
REPORT GIVEN TO NURSE NORI ENRIQUEZ RN, WILL CONT TO MONITOR
--- NOTE | 2025-01-16 09:40 | HMCIMG ---
Exam Type: CHEST 1VW Clinical Information: COPD exacerbation Comparison: None Findings: The lungs are clear of infiltrates. The heart is enlarged. Bony and soft tissue structures of the chest wall are unremarkable. IMPRESSION: Cardiomegaly. Clear lungs.
--- NOTE | 2025-01-16 11:29 | PN ---
[facility] PROGRESS NOTE Date Patient Seen: Jan 16, 2025 Time of Visit: 11:29 Supervising Physician: Alex Penaloza MD Primary Care Physician: LIANA Hernandez MD Outpatient Specialists: [ ] Inpatient Consults: [ ] PROBLEM LIST: Acute hypoxemic hypercarbic respiratory failure POA. Respiratory acidosis. COPD/Emphysema with exacerbation. Current smoker, consumes 6 cigarettes sticks per day. Hypokalemia. Hypomagnesemia Dehydration. Lactic acidosis. Hypothyroidism. INTERVAL HISTORY: Patient is awake alert and oriented x3. She is sitting up in bed with family at the bedside. She appears to be in no apparent distress. She has been hemodynamically stable and afebrile saturating 94% with 2 L via nasal cannula. She uses chronic O2 at 1 L at home. Urine output 800 mL approximately. 2 kg more than yesterday on daily weight. WBCs trending down 12.4 today with a H&H of 10.8/32.8 and a platelet count of 246 K. BUN 26 creatinine 0.7 carbon dioxide of 33. Patient continues on doxycycline added Zosyn for suspected aspiration pneumonia coverage. On chest x-ray cardiomegaly with flattening of diaphragm consistent with COPD and smoking. pt has bilateral pulmonary infiltrates, worse on the rt. She is pending SNF placement. I have spoke to hospice case manager Marycarmen and order has been placed for DC Planning.Pt to continue with PT REVIEW OF SYSTEMS: 12 point ROS reviewed with patient. Pertinent positives mentioned above. Otherwise negative. PHYSICAL EXAM: GENERAL: Alert, weak, awake oriented x 3 HEENT: EOMI, Sclera non icteric, moist mucosa NECK: Supple, no JVD, trachea midline LUNGS: Diminished breath sounds bilaterally. No wheezes HEART: Regular rate and rhythm. Normal S1 and S2, without murmurs ABD: Abdomen soft, nontender. Bowel sounds present EXT: No clubbing cyanosis or edema NEURO: Alert and oriented to person, follows commands Vital Signs (last 8hr) Date Time Temp Pulse Resp B/P (MAP) Pulse Ox O2 Delivery O2 Flow Rate FiO2 01/16/25 08:45 97 Nasal Cannula* 2 28 01/16/25 08:01 77 20 N/Cannula Low lpm 2.0 28 01/16/25 08:00 77 18 01/16/25 07:00 97.2 68 34 152/76 96 Nasal Cannula 2.0 01/16/25 04:41 98.1 72 18 132/86 94 Nasal Cannula LABS: Hematology Labs: Test 01/16/25 03:19 Range/Units White Blood Count 12.4 H 4.8-10.8 K/uL Red Blood Count 2.97 L 4.00-5.50 MIL/uL Hemoglobin 10.8 L 12.0-16.0 g/dL Hematocrit 32.8 L 36-48 % Mean Corpuscular Volume 110.4 H 79-99 fL Mean Corpuscular Hemoglobin 36.4 H 27.0-33.0 pg Mean Corpuscular Hemoglobin Concent 32.9 32.0-36.0 g/dL Red Cell Distribution Width 16.7 H 11.0-15.5 % Platelet Count 246 130-400 K/uL Mean Platelet Volume 11.2 H 7.5-10.5 fL Immature Granulocyte % (Auto) 0.9 0-1 % Neutrophils (%) (Auto) 91.5 H 40.0-77.0 % Lymphocytes (%) (Auto) 2.7 L 21.0-51.0 % Monocytes (%) (Auto) 4.7 3.0-13.0 % Eosinophils (%) (Auto) 0.1 0.0-8.0 % Basophils (%) (Auto) 0.1 0.0-5.0 % Neutrophils # (Auto) 11.3 H 1.8-7.7 K/uL Lymphocytes # (Auto) 0.3 L 1.0-4.8 K/uL Monocytes # (Auto) 0.6 0.1-1.0 K/uL Eosinophils # (Auto) 0.01 0.00-0.70 K/uL Basophils # (Auto) 0.01 0.00-0.20 K/uL Absolute Immature Granulocyte (auto 0.11 0-1 K/uL Nucleated Red Blood Cells 0.0 0.0-0.19 % Chemistry Labs: Test 01/16/25 05:27 01/16/25 03:19 01/15/25 16:07 Range/Units Whole Blood Glucose 145 H 70-110 MG/DL Sodium Level 143 136-145 mmol/L Potassium Level 4.0 3.5-5.1 mmol/L Chloride Level 104 101-111 mmol/L Carbon Dioxide Level 33 H 21-32 mmol/L Blood Urea Nitrogen 26 H 7-18 mg/dL Creatinine 0.7 0.5-1.0 mg/dL Glomerular Filtration Rate Calc 88 >90 mL/min Random Glucose 133 H 70-105 mg/dL Total Calcium 8.4 L 8.5-10.1 mg/dL Bedside Glucose Comment Notified Nurse DIAGNOSTICS / RADIOLOGY RESULTS: [ ] Signed PATIENT: KRISTINA MA MR#: [id number] : 1945 SEX: F AGE: 80 LOCATION: 2D ORDER 230 STATUS: ADM IN REPORT#: [id number] SERVICE 06 REASON: COPD exacerbation ORDERING PHYSICIAN: HANNAH BARRON NP PROCEDURE: CXR1VW - CHEST 1VW Exam Type: CHEST 1VW Clinical Information: COPD exacerbation Comparison: None Findings: The lungs are clear of infiltrates. The heart is enlarged. Bony and soft tissue structures of the chest wall are unremarkable. IMPRESSION: Cardiomegaly. Clear lungs. DICTATED BY: ANGEL QUIROS MD DATE: 01/16/25937 ELECTRONICALLY SIGNED BY: ANGEL QUIROS MD DATE: 01/16/25939 PLAN Pt lives home alone. Has been feeling weak and family concerned due to lives alone. CM for DC planning to IRU. Pt to continue with Physical Therapy IV ABx with Zosyn and PO Doxy. Continue to wean o2 her home baseline is 1L Continue to wean steroids to prednisone 20mg po BID NEURO: Minimize central acting medications as possible. Maintain fall precautions, adequate lighting during the day PULMONARY: Supplemental 02 as needed. Maintain aspiration precautions at all times CARDIOVASCULAR: Follow hemodynamics. Vital signs per facility protocol GI & NUTRITION: Continue with nutritional support. Continue stool softeners and laxatives as needed. KIDNEYS & ELECTROLYTES: Strict monitoring of intake, output and overall fluid balance. Avoid nephrotoxic medications to the extent possible. Medications to be dosed according to renal function. Monitor electrolytes and replace as needed ENDOCRINE: Maintain blood glucose between 100-180 at all times. Hypoglycemia protocol in place INFECTIOUS DISEASE: Trend temperature, WBC and procalcitonin level Follow cultures, deescalate antibiotics as soon as possible. Panculture if new onset fever ONCOLOGY/HEMATOLOGY/COAGULATION: Monitor for s/s of bleeding Monitor hemoglobin, coagulation studies as needed SKIN: Pressure ulcer prevention per facility protocol Specialty mattress ORTHO/REHAB: Continue PT/OT Prophylaxis: Continue GI and DVT prophylaxis Code Status: Full Resuscitation Disposition: TBD Other: Total patient care time exceeds 35 minutes excluding all procedures. JOSE VILLA Jan 16, 2025 11:29
[2025-01-16] MEDS ORDERED: ZOSYN 3.375GM +NS 50ML IV SCH (12:00)
[2025-01-16] MEDS: ZOSYN 3.375GM +NS 50ML IV SCH (12:44)
[2025-01-16] MEDS: predniSONE 20 MG TABLET PO SCH (19:45)
[2025-01-17] VITALS (10 sets, daily range): BP systolic 108–145; BP diastolic 56–99; PULSE 65–74; RESP 18–22; TEMP 97.8–98.6; O2SAT 96–98
[2025-01-17 05:48] LABS: BASOPHILS # (AUTO) 0.01 K/uL (0.00-0.20); BASOPHILS % (AUTO) 0.1 % (0.0-5.0); EOSINOPHILS # (AUTO) 0.01 K/uL (0.00-0.70); EOSINOPHILS % (AUTO) 0.1 % (0.0-8.0); HEMATOCRIT 34.5 % (36-48); IMMATURE GRANULOCYTE ABSOLUTE 0.13 K/uL (0-1); LYMPHOCYTES # (AUTO) 0.5 K/uL (1.0-4.8); LYMPHOCYTES % (AUTO) 3.3 % (21.0-51.0); MEAN CORPUSCULAR HEMOGLOBIN 37.7 pg (27.0-33.0); MEAN CORPUSCULAR HGB CONC 34.5 g/dL (32.0-36.0); MEAN CORPUSCULAR VOLUME 109.2 fL (79-99); MONOCYTES # (AUTO) 1.3 K/uL (0.1-1.0); MONOCYTES % (AUTO) 9.4 % (3.0-13.0); NEUTROPHILS # (AUTO) 12.2 K/uL (1.8-7.7); NEUTROPHILS % (AUTO) 86.2 % (40.0-77.0); PLATELET COUNT (AUTO) 237 K/uL (130-400); RED BLOOD CELL COUNT(AUTO) 3.16 MIL/uL (4.00-5.50); RED CELL DISTRIBUTION WIDTH 16.3 % (11.0-15.5); WHITE BLOOD COUNT (AUTO) 14.2 K/uL (4.8-10.8)
[2025-01-17] MEDS: levoTHYROxine 75 MCG TABLET PO SCH (05:59)
[2025-01-17 06:00] LABS: CREATININE 0.6 mg/dL (0.5-1.0)
[2025-01-17] MEDS: hydROXYurea 500 MG CAP PO SCH (08:23)
[2025-01-17] MEDS: amLODIPine 2.5 MG TAB PO SCH (08:31)
[2025-01-17] MEDS: LISINOPRIL 10 MG TABLET PO SCH (08:31)
[2025-01-17] MEDS: ASPIRIN 81MG CHEW TAB PO SCH (08:32)
--- NOTE | 2025-01-17 14:02 | PN ---
[facility] PROGRESS NOTE Date Patient Seen: Jan 17, 2025 Time of Visit: 14:02 Supervising Physician: John Espino MD Primary Care Physician: LIANA Hernandez MD Outpatient Specialists: [ ] Inpatient Consults: [ ] PROBLEM LIST: Acute hypoxemic hypercarbic respiratory failure POA. Respiratory acidosis. COPD/Emphysema with exacerbation. Current smoker, consumes 6 cigarettes sticks per day. Hypokalemia. Hypomagnesemia Dehydration. Lactic acidosis. Hypothyroidism. INTERVAL HISTORY: Patient is awake alert and oriented x3. She is sitting up in bed with family at the bedside. She appears to be in no apparent distress. She has been hemodynamically stable and afebrile saturating 94% with 2 L via nasal cannula. She uses chronic O2 at 1 L at home. Patient reports good urine output. White count 14.2 likely elevated reactively from steroids. H&H stable 11.9/34.5 platelet count 237 K. Neutrophils trending down 86.2 today. On chemistry kidneys are doing well creatinine 0.6 GFR of 92 glucose 140 mg/dL. Patient is standing [facility] [place] per case management. REVIEW OF SYSTEMS: 12 point ROS reviewed with patient. Pertinent positives mentioned above. Otherwise negative. PHYSICAL EXAM: GENERAL: Alert, weak, awake oriented x 3 HEENT: EOMI, Sclera non icteric, moist mucosa NECK: Supple, no JVD, trachea midline LUNGS: Diminished breath sounds bilaterally. No wheezes HEART: Regular rate and rhythm. Normal S1 and S2, without murmurs ABD: Abdomen soft, nontender. Bowel sounds present EXT: No clubbing cyanosis or edema NEURO: Alert and oriented to person, follows commands Vital Signs (last 8hr) Date Time Temp Pulse Resp B/P (MAP) Pulse Ox O2 Delivery O2 Flow Rate FiO2 01/17/25 11:00 98.1 69 22 145/81 99 Nasal Cannula 2.0 01/17/25 08:00 97 Nasal Cannula* 2 28 01/17/25 07:33 97.9 70 20 138/99 97 Nasal Cannula 2.0 01/17/25 07:19 73 18 01/17/25 07:19 73 20 N/Cannula Low lpm 2.0 28 LABS: Hematology Labs: Test 01/17/25 05:25 Range/Units White Blood Count 14.2 H 4.8-10.8 K/uL Red Blood Count 3.16 L 4.00-5.50 MIL/uL Hemoglobin 11.9 L 12.0-16.0 g/dL Hematocrit 34.5 L 36-48 % Mean Corpuscular Volume 109.2 H 79-99 fL Mean Corpuscular Hemoglobin 37.7 H 27.0-33.0 pg Mean Corpuscular Hemoglobin Concent 34.5 32.0-36.0 g/dL Red Cell Distribution Width 16.3 H 11.0-15.5 % Platelet Count 237 130-400 K/uL Mean Platelet Volume 11.2 H 7.5-10.5 fL Immature Granulocyte % (Auto) 0.9 0-1 % Neutrophils (%) (Auto) 86.2 H 40.0-77.0 % Lymphocytes (%) (Auto) 3.3 L 21.0-51.0 % Monocytes (%) (Auto) 9.4 3.0-13.0 % Eosinophils (%) (Auto) 0.1 0.0-8.0 % Basophils (%) (Auto) 0.1 0.0-5.0 % Neutrophils # (Auto) 12.2 H 1.8-7.7 K/uL Lymphocytes # (Auto) 0.5 L 1.0-4.8 K/uL Monocytes # (Auto) 1.3 H 0.1-1.0 K/uL Eosinophils # (Auto) 0.01 0.00-0.70 K/uL Basophils # (Auto) 0.01 0.00-0.20 K/uL Absolute Immature Granulocyte (auto 0.13 0-1 K/uL Nucleated Red Blood Cells 0.0 0.0-0.19 % Chemistry Labs: Test 01/17/25 05:25 01/17/25 04:47 01/15/25 16:07 Range/Units Sodium Level 140 136-145 mmol/L Potassium Level 4.0 3.5-5.1 mmol/L Chloride Level 106 101-111 mmol/L Carbon Dioxide Level 27 21-32 mmol/L Blood Urea Nitrogen 24 H 7-18 mg/dL Creatinine 0.6 0.5-1.0 mg/dL Glomerular Filtration Rate Calc 92 >90 mL/min Random Glucose 118 H 70-105 mg/dL Total Calcium 8.2 L 8.5-10.1 mg/dL Whole Blood Glucose 140 H 70-110 MG/DL Bedside Glucose Comment Notified Nurse DIAGNOSTICS / RADIOLOGY RESULTS: [ ] PLAN Pt lives home alone. Has been feeling weak and family concerned due to lives alone. CM for DC planning to IRU. [facility]. Pt to continue with Physical Therapy IV ABx with Zosyn and PO Doxy. Continue to wean o2 her home baseline is 1L Continue to wean steroids to prednisone 20mg po BID NEURO: Minimize central acting medications as possible. Maintain fall precautions, adequate lighting during the day PULMONARY: Supplemental 02 as needed. Maintain aspiration precautions at all times CARDIOVASCULAR: Follow hemodynamics. Vital signs per facility protocol GI & NUTRITION: Continue with nutritional support. Continue stool softeners and laxatives as needed. KIDNEYS & ELECTROLYTES: Strict monitoring of intake, output and overall fluid balance. Avoid nephrotoxic medications to the extent possible. Medications to be dosed according to renal function. Monitor electrolytes and replace as needed ENDOCRINE: Maintain blood glucose between 100-180 at all times. Hypoglycemia protocol in place INFECTIOUS DISEASE: Trend temperature, WBC and procalcitonin level Follow cultures, deescalate antibiotics as soon as possible. Panculture if new onset fever ONCOLOGY/HEMATOLOGY/COAGULATION: Monitor for s/s of bleeding Monitor hemoglobin, coagulation studies as needed SKIN: Pressure ulcer prevention per facility protocol Specialty mattress ORTHO/REHAB: Continue PT/OT Prophylaxis: Continue GI and DVT prophylaxis Code Status: Full Resuscitation Disposition: TBD Other: Total patient care time exceeds 35 minutes excluding all procedures. JOSE VILLA Jan 17, 2025 14:02
[2025-01-17] MEDS: acetaMINOPHEN 325 MG TAB PO PRN (21:38)
[2025-01-18] VITALS (9 sets, daily range): BP systolic 108–156; BP diastolic 54–75; PULSE 55–69; RESP 16–18; TEMP 97.5–98.2; O2SAT 99
[2025-01-18 04:00] LABS: BASOPHILS # (AUTO) 0.01 K/uL (0.00-0.20); BASOPHILS % (AUTO) 0.1 % (0.0-5.0); EOSINOPHILS # (AUTO) 0.21 K/uL (0.00-0.70); EOSINOPHILS % (AUTO) 1.8 % (0.0-8.0); HEMATOCRIT 34.4 % (36-48); LYMPHOCYTES # (AUTO) 0.9 K/uL (1.0-4.8); MEAN CORPUSCULAR HGB CONC 32.8 g/dL (32.0-36.0); MEAN CORPUSCULAR VOLUME 109.6 fL (79-99); MONOCYTES # (AUTO) 1.3 K/uL (0.1-1.0); MONOCYTES % (AUTO) 11.6 % (3.0-13.0); NEUTROPHILS # (AUTO) 8.9 K/uL (1.8-7.7); NEUTROPHILS % (AUTO) 77.6 % (40.0-77.0); PLATELET COUNT (AUTO) 235 K/uL (130-400); RED BLOOD CELL COUNT(AUTO) 3.14 MIL/uL (4.00-5.50); WHITE BLOOD COUNT (AUTO) 11.4 K/uL (4.8-10.8)
[2025-01-18 04:26] LABS: ALBUMIN 2.4 g/dL (3.5-5.0); BILIRUBIN,TOTAL 0.5 mg/dL (0.2-1.0); CREATININE 0.9 mg/dL (0.5-1.0); POTASSIUM 3.2 mmol/L (3.5-5.1); TOTAL PROTEIN, SERUM 4.9 g/dL (6.0-8.3)
--- NOTE | 2025-01-18 08:55 | HMCIMG ---
Exam Type: CHEST 1VW Clinical Information: hypoxic resp failure Comparison: None Findings: Pulmonary pattern is as before. No worrisome interval changes have taken place. Impression: Stable exam.
[2025-01-18] MEDS: predniSONE 20 MG TABLET PO SCH (09:09)
--- NOTE | 2025-01-18 11:42 | PN ---
[facility] PROGRESS NOTE Date Patient Seen: Jan 18, 2025 Time of Visit: 11:42 Supervising Physician: [ ] Primary Care Physician: LIANA Hernandez MD Outpatient Specialists: [ ] Inpatient Consults: [ ] PROBLEM LIST: Acute hypoxemic hypercarbic respiratory failure POA. Respiratory acidosis. COPD/Emphysema with exacerbation. Current smoker, consumes 6 cigarettes sticks per day. Hypokalemia. Hypomagnesemia Dehydration. Lactic acidosis. Hypothyroidism. INTERVAL HISTORY: Patient is awake alert and oriented x3. She is sitting up in bed with family at the bedside. She appears to be in no apparent distress. She has been hemodynamically stable and afebrile saturating 94% with 2 L via nasal cannula. She uses chronic O2 at 1 L at home. Patient reports good urine output. White count 14.2 likely elevated reactively from steroids. H&H stable 11.9/34.5 platelet count 237 K. Neutrophils trending down 86.2 today. On chemistry kidneys are doing well creatinine 0.6 GFR of 92 glucose 140 mg/dL. Patient is standing [facility] [place] per case management. REVIEW OF SYSTEMS: 12 point ROS reviewed with patient. Pertinent positives mentioned above. Otherwise negative. PHYSICAL EXAM: GENERAL: Alert, weak, awake oriented x 3 HEENT: EOMI, Sclera non icteric, moist mucosa NECK: Supple, no JVD, trachea midline LUNGS: Diminished breath sounds bilaterally. No wheezes HEART: Regular rate and rhythm. Normal S1 and S2, without murmurs ABD: Abdomen soft, nontender. Bowel sounds present EXT: No clubbing cyanosis or edema NEURO: Alert and oriented to person, follows commands Vital Signs (last 8hr) Date Time Temp Pulse Resp B/P (MAP) Pulse Ox O2 Delivery O2 Flow Rate FiO2 01/18/25 09:00 99 Nasal Cannula* 2 28 01/18/25 07:31 98.2 55 18 156/54 99 Nasal Cannula 2.0 01/18/25 07:05 63 18 01/18/25 07:04 63 18 N/Cannula Low lpm 2.0 01/18/25 07:02 63 18 01/18/25 04:48 97.5 66 18 117/75 98 Nasal Cannula 2.0 LABS: Hematology Labs: Test 01/18/25 03:26 Range/Units White Blood Count 11.4 H 4.8-10.8 K/uL Red Blood Count 3.14 L 4.00-5.50 MIL/uL Hemoglobin 11.3 L 12.0-16.0 g/dL Hematocrit 34.4 L 36-48 % Mean Corpuscular Volume 109.6 H 79-99 fL Mean Corpuscular Hemoglobin 36.0 H 27.0-33.0 pg Mean Corpuscular Hemoglobin Concent 32.8 32.0-36.0 g/dL Red Cell Distribution Width 16.0 H 11.0-15.5 % Platelet Count 235 130-400 K/uL Mean Platelet Volume 11.1 H 7.5-10.5 fL Immature Granulocyte % (Auto) 0.9 0-1 % Neutrophils (%) (Auto) 77.6 H 40.0-77.0 % Lymphocytes (%) (Auto) 8.0 L 21.0-51.0 % Monocytes (%) (Auto) 11.6 3.0-13.0 % Eosinophils (%) (Auto) 1.8 0.0-8.0 % Basophils (%) (Auto) 0.1 0.0-5.0 % Neutrophils # (Auto) 8.9 H 1.8-7.7 K/uL Lymphocytes # (Auto) 0.9 L 1.0-4.8 K/uL Monocytes # (Auto) 1.3 H 0.1-1.0 K/uL Eosinophils # (Auto) 0.21 0.00-0.70 K/uL Basophils # (Auto) 0.01 0.00-0.20 K/uL Absolute Immature Granulocyte (auto 0.10 0-1 K/uL Nucleated Red Blood Cells 0.0 0.0-0.19 % Red Blood Cell Morphology See comments Chemistry Labs: Test 01/18/25 05:27 01/18/25 03:26 Range/Units Whole Blood Glucose 85 70-110 MG/DL Sodium Level 140 136-145 mmol/L Potassium Level 3.2 L 3.5-5.1 mmol/L Chloride Level 102 101-111 mmol/L Carbon Dioxide Level 37 H 21-32 mmol/L Blood Urea Nitrogen 26 H 7-18 mg/dL Creatinine 0.9 0.5-1.0 mg/dL Glomerular Filtration Rate Calc 65 >90 mL/min Random Glucose 81 70-105 mg/dL Total Calcium 8.1 L 8.5-10.1 mg/dL Total Bilirubin 0.5 0.2-1.0 mg/dL Aspartate Amino Transf (AST/SGOT) 15 10-37 U/L Alanine Aminotransferase (ALT/SGPT) 45 12-78 U/L Alkaline Phosphatase 57 50-136 U/L Total Protein 4.9 L 6.0-8.3 g/dL Albumin 2.4 L 3.5-5.0 g/dL DIAGNOSTICS / RADIOLOGY RESULTS: [ ] PLAN Pt lives home alone. Has been feeling weak and family concerned due to lives alone. CM for DC planning to IRU. [facility]. Pt to continue with Physical Therapy IV ABx with Zosyn and PO Doxy. Continue to wean o2 her home baseline is 1L Continue to wean steroids to prednisone 20mg po BID NEURO: Minimize central acting medications as possible. Maintain fall precautions, adequate lighting during the day PULMONARY: Supplemental 02 as needed. Maintain aspiration precautions at all times CARDIOVASCULAR: Follow hemodynamics. Vital signs per facility protocol GI & NUTRITION: Continue with nutritional support. Continue stool softeners and laxatives as needed. KIDNEYS & ELECTROLYTES: Strict monitoring of intake, output and overall fluid balance. Avoid nephrotoxic medications to the extent possible. Medications to be dosed according to renal function. Monitor electrolytes and replace as needed ENDOCRINE: Maintain blood glucose between 100-180 at all times. Hypoglycemia protocol in place INFECTIOUS DISEASE: Trend temperature, WBC and procalcitonin level Follow cultures, deescalate antibiotics as soon as possible. Panculture if new onset fever ONCOLOGY/HEMATOLOGY/COAGULATION: Monitor for s/s of bleeding Monitor hemoglobin, coagulation studies as needed SKIN: Pressure ulcer prevention per facility protocol Specialty mattress ORTHO/REHAB: Continue PT/OT Prophylaxis: Continue GI and DVT prophylaxis Code Status: Full Resuscitation Disposition: TBD Other: Total patient care time exceeds 35 minutes excluding all procedures. JOSE VILLA Jan 18, 2025 11:42
--- NOTE | 2025-01-18 16:22 | NUR ---
REPORT CALLED REPORT TO NURSE DEMARCUS WITH [facility]. PATIENT UPDATED. DISCHARGE INSTRUCTIONS GIVEN. PATIENT STATED UNDERSTANDING. ALL QUESTIONS ANSWERED.
--- NOTE | 2025-01-18 20:19 | DS ---
[facility] DISCHARGE SUMMARY Date Patient Seen: Jan 18, 2025 Time of Visit: 20:04 Supervising Physician: John Espino MD Primary Care Physician: LIANA Hernandez MD Outpatient Specialists: [ ] Inpatient Consults: [ ] PROBLEM LIST: Acute on chornic hypoxemic and hypercarbic respiratory failure POA., resolving (Pt uses 1L of o2 via NC at home) COPD/Emphysema with exacerbation. POA, resolving Current smoker, consumes 6 cigarettes sticks per day. Hypokalemia. Hypomagnesemia Dehydration. Lactic acidosis. Hypothyroidism. HOSPITAL COURSE: HPI This is a 80-year-old female patient who has past medical history significant for hypertension, hypothyroidism, depression, COPD and is a current smoker, reports 6-cigarette sticks per day. Patient does not have good recollection of the pre-hospital events. Based on the chart documentation, the patient went into respiratory arrest, EMS was called and arrived to the scene. ER MD documentation states that the patient was seen in agonal breathing, CPR was initiated, the patient's status significantly improved and was able to sustain breathing on her own. The patient was placed on a non-rebreather mask and was brought into the emergency department for further evaluation and management of her condition. Upon initial evaluation in the emergency department, initial vital signs obtained showed hypotension, was initially tachypneic and heart rate was within the normal range. Initial ABG on admission showed a pH of 7.247, pCO2 53, PO2 92.8, HC03 of 22.5, SpO2 95.8 and base excess of -5.1. Laboratory data obtained was notable for a slightly low potassium of 3.1, magnesium 1.6, initial lactic acidosis of 6.0 which later corrected to 1.5. Negative troponin 47. Urinalysis was negative for infection. Respiratory viral panel was also negative. Chest x-ray showed no acute airspace disease. The patient was subsequently started on a BiPAP therapy, with noticeable improvement of her r espiratory status and was later admitted for further inpatient evaluation and management of her condition. At the time of my visit, the patient was in her assigned room and the staff nurse reports no acute events overnight. The patient remain on a BiPAP therapy, currently 10/5, respiratory rate of 18, FiO2 28%. No other complaint. The patient was eventually weaned from BiPAP to nasal cannula. She was treated with IV steroids on admission and wean successfully. Empiric antibiotics were started with Zosyn and doxycycline. Patient overall did well and improved rapidly. Given that she lives alone and recent of her . Patient requested to continue with physical therapy to improve her strength. She will require IV antibiotics for few more days and was referred to care home facility. Per case management she was accepted today at [facility]. Patient is hemodynamically stable and afebrile. Blood pressure of 139/68 heart rate in the 60s respiratory rate of 16 unlabored saturating 97% with 2 L via nasal cannula. She is stable for discharge to SNF. Discharge instructions given and patient verbalized understanding. Informed her on the importance to follow up with primary care physician in 1-3 days after discharge from the care home facility and she verbalized understanding. CHRONIC PROBLEMS: continue previous management per PCP unless otherwise indicated [employer] FINDINGS/RECOMMENDATIONS: N/A CURRENT MEDICATION PROCEDURES: as mentioned above IMAGING REPORT Signed PATIENT: KRISTINA MA MR#: [id number] : 1945 SEX: F AGE: 80 LOCATION: [facility] ORDER 1142 STATUS: ADM IN REPORT#: [id number] SERVICE 1141 REASON: COPD exacerbation ORDERING PHYSICIAN: HANNAH BARRON NP PROCEDURE: CHEST WO - CT CHEST W/O CONTRAST CT CHEST W/O CONTRAST HISTORY: COPD COMPARISON: 11/28/2024 TECHNIQUE: Multiple sequential axial images of the chest were obtained from the thoracic inlet through upper abdomen. Patient was not given contrast through intravenous route. FINDINGS: Small bilateral pleural effusions are seen. There are interstitial fibrosis. Coronary arterial calcifications are seen. Mild COPD changes are seen. No pleural effusion or pericardial effusion is seen. There is no evidence of pneumothorax. There are normal size mediastinal and hilar lymph nodes. The heart is not enlarged. Degenerative changes of the thoracolumbar spine are present. There is no evidence of adrenal nodule. IMPRESSION: 1. Bilateral pleural effusions with interstitial fibrosis. Mild COPD changes are seen. CT was performed with one or more following dose reduction techniques: automated exposure control, adjustment of the mA and kv according to patient's size, or use of a iterative reconstruction technique. DICTATED BY: CARRILLO SÁNCHEZ MD DATE: 01/13/25 1607 ELECTRONICALLY SIGNED BY: CARRILLO SÁNCHEZ MD DATE: 01/13/25 1610 DISCHARGE MEDICATIONS: Continue Albuterol Sulfate (Ventolin Hfa) 1 PUFF Q4H PRN IH SHORTNESS OF BREATH Amlodipine Besylate (NorvASC 2.5MG TAB) 2.5 mg AM PO Last administered on 01/18/25 09:12; Admin Dose 2.5 MG; Start 01/17/25 at 09:00; \ Ascorbic Acid (Vitamin C 500mg Tab) 500 mg DAILY PO Last administered on 01/18/25 09:09; Admin Dose 500 MG; Start 01/11/25 at 09:00; Aspirin (Aspirin 81mg Chew Tab) 81 mg AM PO Last administered on 01/18/25 09:11; Admin Dose 81 MG; Start 01/17/25 at 09:00; Azithromycin 250 ml @ 250 mls/hr Q24H IVPB Last administered on 01/12/25 03:13; Admin Dose 250 MLS/HR; Start 01/11/25 at 02:30; x 5 days Budesonide (Pulmicort 0.5 Mg/2ml) 0.5 mg BIDRESP IH Last administered on 01/18/25 07:02; Admin Dose 0.5 MG; Start 01/11/25 at 06:00; Doxycycline Hyclate (Doxycycline Hyclate) 100 mg BID PO Last administered on 01/18/25 09:09; Admin Dose 100 MG; Start 01/12/25 at 21:00; x 10 days Enoxaparin Sodium (Lovenox) 40 mg DAILY SQ Last administered on 01/18/25 09:09; Admin Dose 40 MG; Start 01/11/25 at 09:00; Guaifenesin/ Dextromethorphan (RobiTUSSin DM 200/20MG 10ML) 15 ml Q6H PRN PO COUGH Last administered on 01/18/25 16:35; Admin Dose 15 ML; Start 01/12/25 at 23:00; Home Med (Home Medication) Cholecalciferol (Vitamin D3) 1 CAP QWEEK PO ; Start 01/23/25 at 09:00; Hydralazine HCl (APRESOLine 20MG INJ) 10 mg Q6H PRN IV SBP GREATER THAN 170; Start 01/11/25 at 04:30; Hydroxyurea (HYDrea 500MG CAP) 500 mg DAILY PO Last administered on 01/18/25at 09:09; Admin Dose 500 MG; Start 01/17/25 at 09:00; Insulin Human Regular (humuLIN R 100 UNIT/ML 3ML) INSULIN SLIDING SCAL... ACHS SQ Last administered on 01/15/25at 16:34; Admin Dose 4 UNIT; Start 01/11/25 at 07:30; Magnesium Sulfate 50 ml @ 0 mls/hr PROTOCOL IV Last administered on 01/14/25at 09:48; Admin Dose 25 MLS/HR; Start 01/11/25 at 03:30; Ondansetron HCl (zoFRAN 4MG INJ) 4 mg Q6H PRN IVP NAUSEA/VOMITING; Start 01/11/25 at 04:30; Stop 01/18/25 at 17:04; Status DC Pantoprazole Sodium (PROTonix 40MG TAB) 40 mg DAILY PO Last administered on 01/18/25 09:09; Admin Dose 40 MG; Start 01/11/25 at 09:00; Piperacillin Sod/ Tazobactam Sod (Zosyn 3.375gm+NS 50ml) 3.375 gm Q8H IV Last administered on 01/18/25at 12:11; Admin Dose 3.375 GM; Start 01/16/25 at 12:00; x 7 days Polyethylene Glycol (MIRalax 3350 17 GM POWD.PACK) 17 gm DAILY PO Last administered on 01/18/25 09:09; Admin Dose 17 GM; Start 01/11/25 at 09:00; Potassium Chloride (K-Dur/Klor-Con 20meq) 20 meq AD PRN PO POTASSIUM PROTOCOL; Start 01/11/25 at 11:30; [facility] SENT TO SNF Pt hemodynamically stable and afebrile at time of discharge. PCP notified of patients admission, hospital course and discharge. Medication Profile: No Active Prescriptions or Reported Meds PHYSICAL EXAM: GENERAL: Alert, weak, awake oriented x 3 HEENT: EOMI, Sclera non icteric, moist mucosa NECK: Supple, no JVD, trachea midline LUNGS: Clear breath sounds bilaterally. No wheezes HEART: Regular rate and rhythm. Normal S1 and S2, without murmurs ABD: Abdomen soft, nontender. Bowel sounds present EXT: No clubbing cyanosis or edema NEURO: Alert and oriented to person, follows commands FOLLOW-UP: Follow-up with PCP in 2-3 days RECOMMENDATIONS: See Discharge Instructions This case was seen and discussed with my supervising physician. More than 30 minutes spent on discharge process, including evaluation of the patient, discussion with nursing staff, medication reconciliation and follow-up appointments ATTESTATION BY PHYSICIAN I reviewed the documentation, medical decision making, and treatment plan as noted by the mid-level provider above. I agree with the findings and plan of care. John Espino MD, NELLY [facility] Jan 18, 2025 20:19
[2025-01-23] MEDS ORDERED: Cholecalciferol (Vitamin D3) 1 CAP PO SCH (09:00)
== END 2025-01-18 17:00 | DRG 193 ==
LOC: EDH 02:01 → EDHIP 02:02 → OBSVTOIN 02:02 → 2CH 04:55 → 2DH 16:56
PROVIDERS: ADMIT Internal Medicine Critical Care Medicine; ATTEND Internal Medicine Critical Care Medicine
PROC: 5A09357 Assistance with Respiratory Ventilation, Less than 24 Consecutive Hours, Continuous Positive Airway Pressure (ICD-10-PCS; principal; 2025-01-11)
PROC: 5A09357 Assistance with Respiratory Ventilation, Less than 24 Consecutive Hours, Continuous Positive Airway Pressure (ICD-10-PCS; 2025-01-12)
PROC: 5A09357 Assistance with Respiratory Ventilation, Less than 24 Consecutive Hours, Continuous Positive Airway Pressure (ICD-10-PCS; 2025-01-13)
PROC: 5A09357 Assistance with Respiratory Ventilation, Less than 24 Consecutive Hours, Continuous Positive Airway Pressure (ICD-10-PCS; 2025-01-14)
DX: J18.9 Pneumonia, unspecified organism (principal); J96.01 Acute respiratory failure with hypoxia; J96.02 Acute respiratory failure with hypercapnia; E87.29 Other acidosis; J44.1 Chronic obstructive pulmonary disease with (acute) exacerbation; J44.0 Chronic obstructive pulmonary disease with (acute) lower respiratory infection; F17.210 Nicotine dependence, cigarettes, uncomplicated; E87.6 Hypokalemia; E86.0 Dehydration; E83.42 Hypomagnesemia; E03.9 Hypothyroidism, unspecified; I10 Essential (primary) hypertension; I95.9 Hypotension, unspecified; J43.9 Emphysema, unspecified; Z63.4 Disappearance and death of family member; Z90.710 Acquired absence of both cervix and uterus; Z79.899 Other long term (current) drug therapy
CPT/HCPCS: 36415; 36600; 71045; 71250; 80048; 80053; 81001; 82140; 82435; 82550; 82803; 82947; 82948; 83605; 83735; 83880; 84100; 84132; 84145; 84295; 84484; 85018; 85025; 85027; 87040; 87086; 87635; 87804; 87880; 93005; 94640; 94644; 94660; 94664; 94667; 94668; 94760; 96365; 96368; 96375; 99291; G0378; J0456; J0696; J1650; J1815; J2060; J2270; J2543; J2919; J3475; J3480; J7030; J7120